=== PATIENT | female | born 1940 | race Caucasian/White ===

== ENCOUNTER 2025-03-25 17:33 | Inpatient (IN) | payer MEDICARE, SELFPAY ==
--- NOTE | ~2025-03-25 | CT_ITS ---
CLINICAL HISTORY: Stroke Protocol CT head without contrast Comparison: None provided Findings: Significant beam hardening artifact from metal in the left orbit. No intra-axial mass, midline shift, hydrocephalus, or acute hemorrhage. There is atrophy. Nonspecific bilateral supratentorial white matter hypodensities most suggestive of chronic small-vessel ischemic changes. Atherosclerotic vascular disease. The visualized paranasal sinuses and mastoid air cells are clear. Metal in the left orbit. There is no acute skull fracture. IMPRESSION: 1. No acute intracranial findings. This document has been electronically signed by: Ros Soliz MD on 03/25/2025 18:13:14
--- NOTE | ~2025-03-25 | CT_ITS ---
CLINICAL HISTORY: aphasia CT angiography head and neck with contrast. 3D Postprocessing. Comparison: None provided Findings: Aortic arch and arch vessels are patent. Atherosclerotic vascular disease. Bilateral common carotid arteries are patent with retropharyngeal course. Mild calcified plaque at bilateral carotid bifurcations with no hemodynamically significant stenosis. Bilateral external carotid arteries are patent. Bilateral vertebral arteries are patent. Bilateral intracranial internal carotid arteries are patent. Atherosclerotic vascular disease of cavernous segments bilaterally with no hemodynamically significant stenosis. Basilar artery enhances normally. Bilateral anterior, middle and posterior cerebral arteries are patent. No intracranial large vessel occlusion. No aneurysm. No abnormal intracranial enhancement. The visualized thyroid gland is unremarkable. No cervical mass or fluid collection. Lung apices clear. No acute fracture. Degenerative changes in cervical spine. IMPRESSION: 1. CT angiography neck demonstrates atherosclerotic vascular disease with no hemodynamically significant stenosis. 2. CT angiography brain demonstrates no intracranial large vessel occlusion. This document has been electronically signed by: Ros Soliz MD on 03/25/2025 18:48:13
--- NOTE | ~2025-03-25 | MR_ITS ---
CLINICAL HISTORY: CVA suspected MR Brain without gadolinium Comparison: CT head and CTA head earlier the same day. Findings: No restricted diffusion. Mild multifocal T2/FLAIR hyperintensities in the white matter, likely secondary to chronic ischemic small vessel disease. No intra-axial mass or hemorrhage. No midline shift. No hydrocephalus. Vascular flow voids are intact. The lenses have been replaced. Minimal mucoperiosteal thickening of the ethmoid sinuses. The mastoid air cells are clear. No focal bone lesion. IMPRESSION: No acute/subacute infarct. This document has been electronically signed by: Peggy Castellon MD on 03/25/2025 21:24:34
--- NOTE | 2025-03-25 17:38 | ECG_ITS ---
Test Reason : STROKE PROTOCOL Blood Pressure : */* mmHG Vent. Rate : 87 BPM Atrial Rate : 87 BPM P-R Int : 148 ms QRS Dur : 102 ms QT Int : 384 ms P-R-T Axes : 77 66 37 degrees QTcB Int : 462 ms Normal sinus rhythm Normal ECG No previous ECGs available Referred By: Edgardo Reid Electronically Signed By: SVETLANA DUONG MD
--- NOTE | 2025-03-25 17:39 | ED.NEUROSD ---
HPI - Neuro Symptoms/Deficit General Chief Complaint: Stroke Stated Complaint: Stroke Alert AMS driving facial drop -Thinners Time Seen by Provider: 03/25/25 17:37 History of Present Illness ED Provider: Edgardo Reid MD HPI Narrative: The patient seen immediately on arrival she was called in his a stroke alert for confusion and aphasia. 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 She is alert oriented x4 smiling comfortable interactive with fluent speech no aphasia she could not give a great timeline but had recalled history of Scott's palsy she felt like it was the left side EMS reported her confused. The patient was last well at 16:00 when she said she got up and went to her car to go to [facility]. She apparently pulled up to [employer] and parked in a ?random ?spot shortly after this staff came out and called EMS because she seemed confused or altered EMS arrived there patient had a facial deficit they noted but the patient reported this to be chronic she was however confused with what they describe as perhaps expressive aphasic speech for forgetfulness repeating statements. Purportedly this began resolving in route. Related Data Home Medications ?Medication ?Instructions ?Recorded ?Confirmed albuterol sulfate 90 mcg/actuation 2 puff inhalation Q4H PRN wheezing 03/25/25 03/25/25 aerosol inhaler atenolol 50 mg tablet 50 mg PO DAILY 03/25/25 03/25/25 calcium 600 mg (as carbonate)-vit 1 tab PO BID 03/25/25 03/25/25 D3 20 mcg (800 unit) chewable tablet (Caltrate plus D) cetirizine 10 mg tablet 10 mg PO DAILY PRN Allergy Symptoms 03/25/25 03/25/25 cholecalciferol (vitamin D3) 50 50 mcg PO DAILY 03/25/25 03/25/25 mcg (2,000 unit) tablet (Vitamin D3) fluticasone propionate 50 2 spray intranasal DAILY 03/25/25 03/25/25 mcg/actuation nasal spray,suspension latanoprost 0.005 % eye drops 1 drp ophthalmic (eye) BEDTIME 03/25/25 03/25/25 levothyroxine 75 mcg tablet 75 mcg PO DAILY@0600 03/25/25 03/25/25 Allergies Allergy/AdvReac Type Severity Reaction Status Date / Time No Known Allergies Allergy Verified 03/25/25 17:44 [facility] Past Medical History Medical History Scott's palsy Glaucoma Macular degeneration Asthma Social History Social History Alcohol intake: never Patient Tobacco Use Status: Never used Tobacco Smoked in Last 30 Days: No Use of substances other than those prescribed or required for medical reasons: No Advance Directives: No Advance Directives Information Provided: No Patient : No service: No Physical Exam Exam: Exam: GENERAL: Well appearing. No apparent distress. Alert. HEAD/NECK: Normal to inspection. Neck supple. No cervical lymphadenopathy. EYES: Normal to inspection. Sclera non-icteric. ENMT: External nose normal. RESPIRATORY: Respiratory effort normal. Lungs clear to auscultation bilaterally. CARDIOVASCULAR: Regular rate. Normal rhythm. No murmur. No rubs. GI: Soft, non-tender, non-distended. No rebound or guarding. No masses palpable. No hepatosplenomegaly. SKIN: No jaundice. NEUROLOGICAL: Alert. PSYCHIATRIC: Alert. Appearance appropriate for situation. Attitude cooperative. OTHER: Comprehensive Neuro exam: Patient has an asymmetric face with perhaps week facial periorbital musculature but strong symmetric forehead deviation upward. pupils symmetric and reactive to light, intact sensation to the face throughout, intact strong face deviation and shoulder shrug. No limb ataxia. Tongue protrudes midline. Oriented x4 Sensation intact to light touch throughout 5 out of 5 strength in bilateral upper extremities, 5 and 5 strength in lower extremities Vital Signs: Vital Signs: Last Vital Signs Temp 97.6 F 03/26/25 06:13 Pulse 100 03/26/25 13:59 Resp 22 H 03/26/25 09:06 BP 133/84 03/26/25 13:59 Pulse Ox 90 L 03/26/25 09:06 O2 Del Method Room Air 03/26/25 09:06 BMI result Body Mass Index 31.0 Medications Administered Generic Name Dose Route Start Last Admin Trade Name Freq PRN Reason Stop Dose Admin Aspirin 81 mg 03/26/25 09:00 03/26/25 09:46 Aspirin 81 Mg Tab.Chew PO 81 mg DAILY BERNICE Administration Atenolol 50 mg 03/26/25 13:15 03/26/25 13:59 Atenolol 50 Mg Tablet PO 50 mg DAILY BERNICE Administration Protocol Levothyroxine Sodium 75 mcg 03/26/25 13:15 03/26/25 13:59 Levothyroxine Sodium 75 Mcg Tablet PO 75 mcg DAILY@0600 BERNICE Administration Senna 17.2 mg 03/25/25 21:00 03/25/25 21:20 Sennosides 8.6 Mg Tablet PO 17.2 mg BEDTIME BERNICE Administration Sodium Chloride 3 ml 03/26/25 00:00 03/26/25 09:46 0.9 % Sodium Chloride Flush 3 Ml Syringe IVFLUSH 3 ml QSHIFT BERNICE Administration Discontinued Medications Generic Name Dose Route Start Last Admin Trade Name Holly PRN Reason Stop Dose Admin Aspirin 325 mg 03/25/25 19:14 03/25/25 21:20 Aspirin 325 Mg Tablet PO 03/25/25 19:15 325 mg ONCE ONE Administration Hydralazine HCl 5 mg 03/25/25 20:10 03/25/25 21:20 Hydralazine Hcl 20 Mg/Ml Vial IVPUSH 03/25/25 20:11 5 mg ONCE ONE Administration Protocol Iohexol 70 ml 03/25/25 17:57 03/25/25 17:57 Iohexol 350 Mg/Ml 100 Ml Infus..Btl IV 03/25/25 17:58 70 ml ONCE ONE Administration Medical Decision Making Medical Decision Making MDM Narrative: Medical Decision Makin-year-old female transient confusion possibly expressive aphasia described witnessed by EMS last known well for p.m. arrival shortly after 17:30. Given score of 1 for NIH stroke scale on arrival due to face though this is chronic. No deficits no aphasia no dysarthria on arrival. No reported vision symptoms. Euglycemic, no coagulopathy, sinus rhythm. CT CTA performed without acute pathology to explain the patient's symptoms could be TIA less likely complex migraine does not fit timing for transient global amnesia Preliminary Favored Differential Diagnosis: See above among additional considered etiologies Testing Interpreted Independently: Sinus rhythm without acute ischemic changes normal intervals Radiology or Lab testing Results Reviewed: ?See below for details Consults: ?See below for details Independent Historians/External Chart Reviews: ?See below for details Social Determinants of Health Impacting MDM/Planning: ?See below for details Lab Data 03/26/25 03:45 03/26/25 03:45 Labs: Lab Results 03/25/25 03/25/25 03/25/25 Range/Units 17:37 17:41 17:48 WBC 7.6 (4.8-10.8) X10*3/uL RBC 5.04 (4.20-5.50) X10*6/uL Hgb 15.8 (12.0-16.0) g/dl Hct 48.6 H (37.0-47.0) % MCV 96.4 (80.0-98.0) fL MCH 31.3 (27.0-33.0) pg MCHC 32.5 (31.0-35.0) g/dl RDW 13.3 (11.0-16.0) % Plt Count 201 (160-400) X10*3/uL MPV 10.0 (9.4-12.3) fL Immature Gran % (Auto) 0.7 H (0.0-0.4) % Neut % (Auto) 55.3 (45-73) % Lymph % (Auto) 28.0 (20-40) % [place] % (Auto) 8.0 (2-11) % Eos % (Auto) 7.1 H (0-4) % Baso % (Auto) 0.9 (0-2) % Lymph # (Auto) 2.1 (1.2-4.9) X10*3/uL [place] # (Auto) 0.6 (0.1-1.2) X10*3/uL Eos # (Auto) 0.5 H (0.0-0.4) X10*3/uL Baso # (Auto) 0.1 (0.0-0.2) X10*3/uL Abs Immat Gran (auto) 0.05 H (0.00-0.03) X10*3/uL Absolute Neuts (auto) 4.2 (2.0-8.3) x10*3/uL Absolute Nucleated RBC 0.000 (0.0-0.012) X10*3/uL Nucleated RBC % (auto) 0.0 (0.0-0.2) /100WBC PT 11.9 (11.2-13.5) SEC Whole Blood PT 12.1 (11.1-13.5) sec INR 1.0 (0.9-1.1) Whole Blood INR 1.0 (0.9-1.1) APTT 28.9 (26.7-34.1) SEC Sodium 141 (135-145) mmol/L Potassium 4.3 (3.3-5.1) mmol/L Chloride 107 (96-108) mmol/L Carbon Dioxide 24 (22-29) mmol/L Anion Gap 14 (12-20) BUN 27 H (9-16) mg/dL Creatinine 0.98 (0.5-1.4) mg/dL Estim Creat Clear Calc 50.0 Estimated GFR 54 POC Glucose 98 (60-115) mg/dL Random Glucose 94 (60-115) mg/dL Calcium 9.8 (8.4-10.2) mg/dL Magnesium 2.1 (1.6-2.6) mg/dL Troponin I High Sens 56.0 H* (<3.5-17.0) ng/L NT-Pro-B Natriuret Pep (<300) pg/mL Triglycerides 86 (<150) mg/dL Cholesterol 163 (<200) mg/dL LDL Cholesterol, Calc 98 (<100) mg/dL HDL Cholesterol 48 (>40) mg/dL TSH 3.29 (0.32-4.0) uIU/mL Ethyl Alcohol < 10 mg/dL 03/25/25 Range/Units 19:12 WBC (4.8-10.8) X10*3/uL RBC (4.20-5.50) X10*6/uL Hgb (12.0-16.0) g/dl Hct (37.0-47.0) % MCV (80.0-98.0) fL MCH (27.0-33.0) pg MCHC (31.0-35.0) g/dl RDW (11.0-16.0) % Plt Count (160-400) X10*3/uL MPV (9.4-12.3) fL Immature Gran % (Auto) (0.0-0.4) % Neut % (Auto) (45-73) % Lymph % (Auto) (20-40) % [place] % (Auto) (2-11) % Eos % (Auto) (0-4) % Baso % (Auto) (0-2) % Lymph # (Auto) (1.2-4.9) X10*3/uL Hubbard # (Auto) (0.1-1.2) X10*3/uL Eos # (Auto) (0.0-0.4) X10*3/uL Baso # (Auto) (0.0-0.2) X10*3/uL Abs Immat Gran (auto) (0.00-0.03) X10*3/uL Absolute Neuts (auto) (2.0-8.3) x10*3/uL Absolute Nucleated RBC (0.0-0.012) X10*3/uL Nucleated RBC % (auto) (0.0-0.2) /100WBC PT (11.2-13.5) SEC Whole Blood PT (11.1-13.5) sec INR (0.9-1.1) Whole Blood INR (0.9-1.1) APTT (26.7-34.1) SEC Sodium (135-145) mmol/L Potassium (3.3-5.1) mmol/L Chloride (96-108) mmol/L Carbon Dioxide (22-29) mmol/L Anion Gap (12-20) BUN (9-16) mg/dL Creatinine (0.5-1.4) mg/dL Estim Creat Clear Calc Estimated GFR POC Glucose (60-115) mg/dL Random Glucose (60-115) mg/dL Calcium (8.4-10.2) mg/dL Magnesium (1.6-2.6) mg/dL Troponin I High Sens 56.9 H* (<3.5-17.0) ng/L NT-Pro-B Natriuret Pep 96.3 (<300) pg/mL Triglycerides (<150) mg/dL Cholesterol (<200) mg/dL LDL Cholesterol, Calc (<100) mg/dL HDL Cholesterol (>40) mg/dL TSH (0.32-4.0) uIU/mL Ethyl Alcohol mg/dL Discharge Plan Discharge Clinical Impression: Delirium Patient Disposition: Admitted As Inpatient Interventions: Admission Worksheet (ED) Last Done: 03/26/25 09:01
[2025-03-25 17:40] VITALS: BP 187/124; BP 207/110; PULSE 98; RESP 14; O2SAT 94; O2SAT 98; BMI 31.0
[2025-03-25 17:46] LABS: Glucose, Whole Blood 98 mg/dL (60-115)
[2025-03-25 17:46] LABS: Prothrombin Time Whole Bld POC 12.1 sec (11.1-13.5); ~PT, ~INR - Anti Coag Clinic 1.0 (0.9-1.1)
[2025-03-25 17:56] LABS: MANUAL DIFF FLAG NO
[2025-03-25] MEDS: iohexoL 350 MG/ML 100 ML INFUS..BTL 70 ML IV (17:57)
[2025-03-25 18:01] VITALS: BP 192/99; PULSE 87; RESP 8; TEMP 36.8; O2SAT 95
[2025-03-25 18:11] LABS: INTERNATIONAL NORM RATIO 1.0 (0.9-1.1); Prothrombin Time 11.9 SEC (11.2-13.5)
[2025-03-25 18:14] LABS: Partial Thromboplastin Time 28.9 SEC (26.7-34.1)
[2025-03-25 18:20] LABS: Anion Gap 14 (12-20); Blood Urea Nitrogen 27 mg/dL (9-16); Calcium 9.8 mg/dL (8.4-10.2); Carbon Dioxide 24 mmol/L (22-29); Chloride 107 mmol/L (96-108); Cholesterol 163 mg/dL (<200); Creatinine Clr Calc Pharmacy 50.0; Estimated Glomerular Filt Rate 54; HDL Cholesterol 48 mg/dL (>40); Potassium 4.3 mmol/L (3.3-5.1); Sodium 141 mmol/L (135-145); Triglycerides 86 mg/dL (<150)
[2025-03-25 18:21] LABS: Hematocrit 48.6 % (37.0-47.0); Hemoglobin 15.8 g/dl (12.0-16.0); Imm Gran Abs Auto 0.05 X10*3/uL (0.00-0.03); Imm Gran Pct Auto 0.7 % (0.0-0.4); Lymphocytes Absolute Auto 2.1 X10*3/uL (1.2-4.9); Mean Corpuscular HGB Conc 32.5 g/dl (31.0-35.0); Mean Corpuscular Hemoglobin 31.3 pg (27.0-33.0); Mean Corpuscular Volume 96.4 fL (80.0-98.0); NRBC Abs Auto 0.000 X10*3/uL (0.0-0.012); NRBC Pct Auto 0.0 /100WBC (0.0-0.2); Platelet Count 201 X10*3/uL (160-400); Red Blood Count 5.04 X10*6/uL (4.20-5.50); White Blood Count 7.6 X10*3/uL (4.8-10.8)
[2025-03-25 18:22] LABS: Stroke Lab Use COMPLETE
[2025-03-25 18:29] LABS: Troponin-I High Sensitivity 56.0 ng/L (<3.5-17.0)
--- NOTE | 2025-03-25 19:30 | PC.NURSE ---
This tech writer assumed care of this Pt at 1900. Pt A&Ox2, forgetful. Denies any pain. Pt taken for MRI imagine.
[2025-03-25 19:39] LABS: Troponin-I High Sensitivity 56.9 ng/L (<3.5-17.0)
--- NOTE | 2025-03-25 19:46 | PM.IMHP ---
History of Present Illness Date of Service: 03/25/25 Attending physician on admission: Antonio Garg Chief Complaint: loss of memory, possible CVA Patient is a 84-year-old female currently experiencing poor memory both short-term and long-term but 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 Patient initially had aphasia per EMS and short-term memory loss. Patient's left side of the face was drooped with paralysis. Patient stated to the ED provider that she has baseline Scott's palsy which could explain this finding but this functional tester typewriters used phone to allow patient to see her face currently and she states that those changes on the left side are new. Patient had no lower extremity or upper extremity weakness, no drift. Patient denies any headache, nausea, vomiting, chest pain or shortness of breath. Patient only follows with her PCP and has no other specialists including jack setter. Patient also states that she has no family in the local area and has no children. Patient is familiar with her neighbor Hillary, but patient does not carry a cell phone so she has no phone numbers available. Patient states her sister Lotus wilson and lives in [place] and requested that this functional tester typewriters attempt to reach out to her. Patient's sister is listed online the phone numbers listed are not working. Patient denies history of stroke or seizure. Patient denies history of smoking, alcohol use, marijuana use or illicit drug use. Patient denies history of UTI more diabetes. LKW was approximately 4PM after pt awakened from a nap. Patient denies unexplained weight loss or gain. Patient is left-hand dominant. Head CT was negative for any acute findings. Head and neck CTA noted atherosclerotic vascular disease with no hemodynamically significant stenosis. CT Angiography of the brain demonstrates no intracranial large vessel occlusion. Patient currently has no leukocytosis or anemia. Electrolytes and renal function are stable. Blood glucose 94. Troponins trending 56 and then 56.9. Triglycerides 86, cholesterol 163, LDL 98 and HDL 48. Patient is being admitted for TIA rule out CVA. Review of Systems Review of Systems: Patient currently denies any chest pain, shortness of breath at rest or with exertion, nausea, vomiting, abdominal pain, constipation or diarrhea. Patient did have a fall this past Sunday where she landed on her back but could not describe whether was mechanical fall or syncopal episode. Patient was on the floor for 5-10 minutes was able to get up on her own. Patient does not carry a cell phone emergency device at her home and only has a landline. Patient has no family to speak of and a neighbor named clear but no phone number available. Patient has chronic glaucoma macular degeneration states her vision is relatively poor but patient has been driving and living independently at home. [facility] Medical History (Updated 03/25/25 @ 20:03 by DANIELA Carlisle) Scott's palsy Glaucoma Macular degeneration Asthma Cognitive capacity: Alert and orientated x3 with episodes of short-term memory loss Functional capacity: independent ambulation (Prior to today's episode) Patient : No Pertinent family history: Mother in her 70s from possible [place] Father in his 50s from [place] Social History (Updated 03/25/25 @ 20:00 by DANIELA Carlisle) Alcohol intake: never Patient Tobacco Use Status: Never used Tobacco Smoked in Last 30 Days: No Use of substances other than those prescribed or required for medical reasons: No Advance Directives: No Advance Directives Information Provided: No Patient : No Has Patient Experienced Ebola Symptoms: No Meds Allergies Allergy/AdvReac Type Severity Reaction Status Date / Time No Known Allergies Allergy Verified 03/25/25 17:44 Active Medications: Current Medications Acetaminophen (Acetaminophen 325 Mg Tablet) 650 mg PO Q6H PRN PRN Reason: Pain, Mild 1-3,fever,headache Albuterol/Ipratropium (Albuterol/Iprat 2.5/0.5mg 3 Ml Ampul.Neb) 3 ml INHALE Q4H PRN PRN Reason: Shortness of Breath/Wheezing Calcium Carbonate (Calcium Carbonate 750 Mg Tab.Chew) 750 mg PO Q4H PRN PRN Reason: Heartburn Magnesium Hydroxide (Milk Of Magnesia 30 Ml Oral.Susp) 30 ml PO DAILY PRN PRN Reason: Constipation Polyethylene Glycol (Polyethylene Glycol 3350 17 Gm Powd.Pack) 17 gm PO DAILY PRN PRN Reason: Constipation Senna (Sennosides 8.6 Mg Tablet) 17.2 mg PO BEDTIME BERNICE Sodium Chloride (0.9 % Sodium Chloride Flush 3 Ml Syringe) 3 ml IVFLUSH QSHIFT [facility] Home Medications ?Medication ?Instructions ?Recorded ?Confirmed ?Last Taken ?Type albuterol sulfate 90 mcg/actuation 2 puff inhalation Q4H PRN wheezing 03/25/25 03/25/25 Unknown History aerosol inhaler atenolol 50 mg tablet 50 mg PO DAILY 03/25/25 03/25/25 03/23/25 History calcium 600 mg (as carbonate)-vit 1 tab PO BID 03/25/25 03/25/25 03/23/25 History D3 20 mcg (800 unit) chewable tablet (Caltrate plus D) cetirizine 10 mg tablet 10 mg PO DAILY PRN Allergy Symptoms 03/25/25 03/25/25 Unknown History cholecalciferol (vitamin D3) 50 50 mcg PO DAILY 03/25/25 03/25/25 03/23/25 History mcg (2,000 unit) tablet (Vitamin D3) fluticasone propionate 50 2 spray intranasal DAILY 03/25/25 03/25/25 03/23/25 History mcg/actuation nasal spray,suspension latanoprost 0.005 % eye drops 1 drp ophthalmic (eye) BEDTIME 03/25/25 03/25/25 03/23/25 History levothyroxine 75 mcg tablet 75 mcg PO DAILY@0600 03/25/25 03/25/25 03/23/25 History Physical Exam Vital Signs and Narrative: Vital Signs: Last Vital Signs Temp 98.3 F 03/25/25 18: Pulse 87 03/25/25 18:01 Resp 8 L 03/25/25 18:01 BP 192/99 H 03/25/25 18:01 Pulse Ox 95 03/25/25 18:01 O2 Del Method Room Air 03/25/25 18:01 BMI result Body Mass Index 31.0 Alert and orientated X3, frustrated with memory loss, this is just stupid , patient overwhelmed with not being able to remember earlier events from today Neuro: Left facial droop with paralysis, left eye proptosis EYES: PERRLA, EOM intact, sclerae nonicteric, conjunctiva pink ENT: Hearing loss noted, no obvious issues with swallowing, uvula midline, lips moist, nares patent no epistaxis Cardiac: S1 S2 RRR, no murmur, no JVD, no edema in Lower ext Pulmonary: lungs clear to auscultation B Abdominal: BS active in all 4 quadrants, no guarding, tenderness, rebounding MSK: strength 5/5 upper and lower extremities, equal, no drift : no CVA tenderness no bladder distension Extremities: no edema in lower extremities, PT and DP pulses palpable +2 Psych: mood mildly anxious, judgement and insight good Skin: No new rashes or lesions Results Labs 03/26/25 03:45 03/26/25 03:45 Labs: Laboratory Results - last 24 hr 03/25/25 03/25/25 03/25/25 17:37 17:41 17:48 MCV 96.4 MCH 31.3 MCHC 32.5 RDW 13.3 Plt Count 201 MPV 10.0 Immature Gran % (Auto) 0.7 H Neut % (Auto) 55.3 Lymph % (Auto) 28.0 [place] % (Auto) 8.0 Eos % (Auto) 7.1 H Baso % (Auto) 0.9 Lymph # (Auto) 2.1 [place] # (Auto) 0.6 Eos # (Auto) 0.5 H Baso # (Auto) 0.1 Abs Immat Gran (auto) 0.05 H Absolute Neuts (auto) 4.2 Absolute Nucleated RBC 0.000 Nucleated RBC % (auto) 0.0 PT 11.9 Whole Blood PT 12.1 INR 1.0 Whole Blood INR 1.0 APTT 28.9 Anion Gap 14 Estim Creat Clear Calc 50.0 Estimated GFR 54 POC Glucose 98 Random Glucose 94 Calcium 9.8 Troponin I High Sens 56.0 H* Triglycerides 86 Cholesterol 163 LDL Cholesterol, Calc 98 HDL Cholesterol 48 Ethyl Alcohol < 10 03/25/25 19:12 MCV MCH MCHC RDW Plt Count MPV Immature Gran % (Auto) Neut % (Auto) Lymph % (Auto) [place] % (Auto) Eos % (Auto) Baso % (Auto) Lymph # (Auto) [place] # (Auto) Eos # (Auto) Baso # (Auto) Abs Immat Gran (auto) Absolute Neuts (auto) Absolute Nucleated RBC Nucleated RBC % (auto) PT Whole Blood PT INR Whole Blood INR APTT Anion Gap Estim Creat Clear Calc Estimated GFR POC Glucose Random Glucose Calcium Troponin I High Sens 56.9 H* Triglycerides Cholesterol LDL Cholesterol, Calc HDL Cholesterol Ethyl Alcohol ECG Attestation: I personally reviewed and interpreted this ECG as follows: (Normal sinus rhythm QTC 462 no ischemic changes) Prior ECG tracings: available for review Imaging Radiologist's Impressions: Head CT Negative for acute CTA of the head and Negative for any occlusive findings Assessment and Plan (1) TIA (transient ischemic attack): Status: Acute Plan Patient is a 84-year-old female currently experiencing poor memory both short-term and long-term but 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 Patient being admitted for TIA rule out CVA. * Patient has no family in the local area. Attempted to reach patient's sister Lotus wilson and in [place] via information found online but both numbers were not working. Patient does not have a cell phone and has no numbers for her neighbor as well named clear. * patient states she does have a history of Scott's palsy but when she saw her face this evening on admission she states that the left-sided droopiness and paralysis is new. * short-term memory poor, causing increased frustration for patient at this time. Patient is very concerned that she will not be able to return home and live independently like she was. TIA rule out CVA CT of the head and CTA of the head and neck negative for acute findings MRI of the brain negative for acute/subacute infarct Echocardiogram pending Neurology consulted Will ask OT to complete MOCA: ? dementia CM/SW consult placed, pt lives alone with no family or support Aspirin 325 x 1, we will continue aspirin 81 mg daily Lipid panel completed, triglycerides 86, cholesterol 163, LDL 98 and HDL 48 AIC pending Bedside swallow requested, pt passes and diet ordered PT eval, ST if needed Elevated troponin 56, than 56.9 Telemetry Echo in the a.m. Cardiology consulted EKG negative for any ischemic changes BNP 96.3 Hypertension Permissive hypertension allowed avoid hypotension Currently blood pressure 192/99, was 201/110 after hydralazine, systolic 171 We will continue atenolol as EKG negative for any arrhythmia or ischemic finding History of Scott's palsy Unclear if left-sided facial changes are chronic versus acute Patient saw a picture of herself this evening and states those findings are new Asthma Duo nebs p.r.n. Patient currently asymptomatic No history of smoking Hypothyroidism Continue levothyroxine TSH 3.29 Macular degeneration/glaucoma Continue eyedrops once med rec completed DVT prophylaxis: Lovenox Med rec completed Full code status Patient will require at least 2 midnights for evaluation of TIA and rule out CVA with expert consultation with Neurology, MRI, echocardiogram. Patient will need case management services as she currently lives alone. Quality Stroke Does the patient have a stroke diagnosis?: No Reason for No Anti-thrombotic by Day Two: N/A - Med Ordered VTE Prior VTE?: No VTE Risk Level:: Medical - moderate - high VTE Device Contraindication: N/A - Device Ordered VTE Drug Contraindication: N/A - Med Ordered
[2025-03-25 20:24] LABS: Magnesium 2.1 mg/dL (1.6-2.6)
[2025-03-25 20:31] LABS: NT Pro B Type Natriuretic Pept 96.3 pg/mL (<300)
[2025-03-25 21:16] VITALS: BP 171/109; PULSE 89; RESP 18; TEMP 36.8; O2SAT 93
--- NOTE | 2025-03-25 22:43 | PHA.MEDREC ---
Pharmacy Consult ? Medication Reconciliation Pharmacy has completed the medication reconciliation. Spoke to patient to confirm medication list. Per patient, she uses latanoprost 1 drop in ou qhs, she does not use dorzolamide-timolol. Last dose of medications was about 2 days ago.
[2025-03-26] VITALS (9 sets, daily range): BP systolic 133–198; BP diastolic 84–105; PULSE 67–103; RESP 17–22; TEMP 36.4–37.6; O2SAT 90–97; BMI 30.9; BMI 31.4
--- OUTSIDE RECORDS SUMMARY | 2025-03-26 00:58 | XMS_ITS | Encounter Summary ---
Author Organization [facility] Address [address] [place] [address] Care Team Providers Care Movie Editor Name Role Phone Alona Yanez MD Primary Care Provider [phone] Encounter Details Date Type Department Care Team ([facility] st Contact Info) Description 03/24/2025 Telephone Adult Medicine [address] [phone] Inge Dye MA Social History Tobacco Use Types Packs/Day Years Used Date Smoking Tobacco: Never Smokeless Tobacco: Never Alcohol Use Standard Drinks/Week Comments No 0 (1 standard drink = 0.6 oz pur e alcohol) Housing Instability Answer Date Recorde d Are you worried that in the next 2 months you may not have stable housing? No 11/26/2024 Food Access & Nutrition Answer Date Rec orded Do you have access to a vari ety of food including fruits and vegetables? Yes 11/26/2024 Access to Healthcare Answer Date Record ed Within the last 3 months, ho w many times did you visit the emergency department for your medical care? 1 11/26/2024 Health Literacy Answer Date Recorded How often do you need to hav e someone help you when you read instructions, pamphlets, or other written material from your doctor or pharmacy? Always 11/26/2024 Caregiver: How often do you need to have someone help you when you read instructions, pamphlets, or other written material from your doctor or pharmacy? Not on file 11/26/2024 Financial Risk Answer Date Recorded How hard is it for you to pa y for the very basics like food, housing, medical care, and air conditioning / heating? Not very hard 11/26/2024 Transportation Answer Date Recorded Has the lack of transportati on kept you from meetings, work, or from getting things needed for daily living? No Has the lack of transportati on kept you from medical appointments or from getting medications? No 11/26/2024 Social Isolation Answer Date Recorded How often do you feel lonely or isolated from th ose around you? Never 11/26/2024 Food Risk Answer Date Recorded Within the past 12 months we worried whether our food would run out before we got money to buy more. Never true 11/26/2024 Within the past 12 months th e food we bought just didn't last and we didn't have money to get more. Often true 11/26/2024 Dependent Care Answer Date Recorded Do you need help finding or paying for care for your loved ones. For example, child and adolescent therapist or elderly care for an older adult? No 11/26/2024 Education Answer Date Recorded Do you think completing more education or training, like finishing a GED, going to college, or learning a trade, would be helpful for you? No 11/26/2024 Employment and Income Answer Date Recor ded During the last four weeks, have you been actively looking for work? No 11/26/2024 Living Situation Answer Date Recorded What is your living situation? Unrecognized valu e 11/26/2024 Interpersonal Safety Answer Date Record ed Physical Abuse Unrecognized value 11/26/2024 Verbal Abuse Unrecognized value 11/26/2024 Comments Unknown Sex and Gender Information Value Date Recorded Sex Assigned at Not on file Legal Sex Female 4:13 PM EST Gender Identity Not on file Sexual Orientation Not on file documented as of this encounter Progress Notes * Tanvi Lopez RN - 03/24/2025 3:11 PM EST Called and spoke to pt. She states she had a fall on 03/21/25 at 9:00 am. She lost her balance and fell backwards. She states her back hit the ground on her right side. She denies hitting her head. No loss of consciousness. After a couple of minutes she was able to get up on her own. She denies pain apart from her normal aches. She is using a hot water bottle on her back. She is declining an appointment in the office at this time. She states she is up and walking without difficulty. She was instructed to call the office if she develops any new or worsening symptoms or if she decides to follow up with her PCP. She is in agreement with this plan. documented in this encounter Plan of Treatment Not on file documented as of this encounter Visit Diagnoses Not on filedocumented in this encounter Additional Health Concerns Assessment Noted Time PHQ-9 Depression Total Score: 2 11/27/19 25 11:09 AM EDT A fall risk assessment has been complete d for the patient 11/26/2024 11:07 AM EDT documented as of this encounter Care Teams Movie Editor Relationship Specialty Start Date End Date Alona Yanez MD [address] [place] [address] PCP - General Internal Medicine 05/28/15 documented as of this encounter
--- OUTSIDE RECORDS SUMMARY | 2025-03-26 00:58 | XMS_ITS | Clinical Summary ---
Author Organization [facility] [address] [place] [address] [place] [phone] Phone Care Team Providers Care Manufacturing Technology Professor Name Role Phone Alona Yanez MD Primary Care Provider [phone] Allergies Active Allergy Reactions Criticality Noted Date Comments Codeine 06/22/2015 Medications levothyroxine (SYNTHROID, LEVOTHROID) 75 mcg tablet TAKE 1 TABLET BY MOUTH DAILY 90 tablet 3 03/26/20 24 Active Eliquis 5 mg tablet TAKE 1 TABLET BY MOUTH TWICE DAILY 180 tablet 3 03/26/20 24 Active cholecalcifero l (VITAMIN D-3) 50 mcg (2,000 unit) capsule Take 1 Capsule by mouth daily. 01/06/20 23 Active fluticasone propionate (FLONASE) 50 mcg/actuation nasal spray SHAKE LIQUID AND USE 2 SPRAYS IN EACH NOSTRIL EVERY DAY 06/09/19 23 Active latanoprost (XALATAN) 0.005 % ophthalmic solution 1 Drop at bedtime. Active vit C/E/Zn/coppr/l utein/zeaxan (PRESERVISION AREDS-2 ORAL) Take by mouth. A ctive albuterol HFA (PROAIR HFA ; PROVENTIL HFA ; VENTOLIN HFA) 90 mcg/actuation inhaler Inhale 2 puffs by mouth every 4 (four) hours if needed for wheezing. 6.7 g 1 11/29/19 25 Active budesonide-for moteroL (SYMBICORT) 80-4.5 mcg/actuation inhaler Inhale 2 puffs by mouth 2 (two) times a day. Rinse mouth with water after use to reduce aftertaste and incidence of candidiasis. Do not swallow. 1 each 11/29/19 25 Active atenoloL (TENORMIN) 50 mg tablet TAKE 1 TABLET(50 MG) BY MOUTH 1 TIME EACH DAY 90 tablet 03/25/20 25 Active atenoloL (TENORMIN) 50 mg tablet TAKE 1 TABLET(50 MG) BY MOUTH 1 TIME EACH DAY 90 tablet 12/26/19 25 025 Discontinued Active Problems Problem Noted Date Diagnosed Date Asthma exacerbation 11/26/2024 Pulmonary emboli 05/01/2023 Overview (04/04/2024): 05/09 bilateral with right heart strain DNR (do not resuscitate) 05/01/2023 Overview (05/23/2024): MOLST form completed 05/01/2023 Cardiopulmonary resuscitation - do not resuscitate Ventilation for a patient in respiratory distress - do not intubate or ventilate Transfer to hospital - transfer to hospital Dialysis - no dialysis Artificial nutrition - no artificial nutrition Artificial hydration - use artificial hydration 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 Glaucoma 01/18/2021 PLMD (periodic limb movement disorder) 9 Obesity (BMI 30.0-34.9) 06/04/2018 Asthma 07/24/2015 Assessment & Plan (11/26/2024 11:18 AM EDT): Cervical high risk HPV (human papillomavirus) te st positive 07/24/2015 Overview (04/04/2024): On pap 01/25 and 08/26: Normal cytology - will not need additional testing STAR (obstructive sleep apnea) 07/24/2015 Overview (04/04/2024): [facility] Home Sleep Apnea Test: Date 10/11/2018; Wt 201#; BMI 30; PHUONG 29, AI 29; HI 1; Unclassified apneas 0; Obstructive apneas 36; Central apneas 12; Mixed apneas 0; hypopneas 1; average oxygen saturation 92% (lowest 81% without saturations <88% for 5% or more of study) [facility] Polysomnogram treatment study. Date 11/02/2018. Wt 195#; BMI 29; SE 55 % SM 55 %; spent 13 % of the study in REM. On CPAP @ 8; RDI 18.5 (AHI 6.9), Central apneas 20; Obstructive apneas 0; Mixed apneas 0; hypopneas 1; RERAs 35; and, average oxygen saturation was 96%. For the entire study, PLMs ~58. - Obstructive Sleep Apnea - moderate; mostly obstructive and central apneas; without sleep related hypoventilation by [address] Vanda Lugo Hypertriglyceridemia 07/24/2015 Osteopenia 07/24/2015 Overview (04/04/2024): 06/2017: T-score spine (-0.8); hip (-1.8); FRAX 12% 07/2020: T-score spine (-1.1); hip (-1.7); FRAX 13% 10/2022: T-score spine (-0.7); hip ( -2.1); FRAX ? Vitamin D deficiency 07/24/2015 Essential hypertension 06/22/2015 Assessment & Plan (11/26/2024 11:18 AM EDT): Hypothyroidism 06/22/2015 Assessment & Plan (11/26/2024 11:18 AM EDT): Macular degeneration 06/22/2015 Encounters Date Type Department Care Team Description 03/24/2025 Telephone Adult Medicine [address] [phone] Inge Dye MA 01/30/2025 Telephone Adult Medicine [address] [phone] Alona Yanez MD from Last 3 Months Immunizations Immunization Administration Dates Next Due Influenza trivalent, 0.5mL ( Fluad) 65yo and older 12/28/2022,12/28/2021,12/29/2020,12/28,01/06/2019,12/31/2017,01/01/2017 ,01/03/2016,02/07/2012,01/12/2011,12/15,02/09/2009,01/16/2008, 7 Influenza trivalent, 0.5mL ( Fluzone High-dose) 65yo and older 03/05/2024 Influenza trivalent, 0.5mL, preservative free (Fluarix; FluLaval; Fluzone) ages 6mo and older (Afluria) 3 years and older 12/29/2019,12/29/2009,02/09/2009,01/15,01/16/2007 Influenza trivalent, with pr eservative (Fluzone; Afluria) 6mo and older 01/01/2017,01/03/2016,02/07/2012,01/12 Pneumococcal conjugate 13 va lent (Prevnar 13, PCV13) 2mo and older 06/11/2017 Pneumococcal polysaccharide 23 valent (Pneumovax 23) 2yo and older 09/30/2018,03/03/2008 Td Tetanus diptheria (Tdvax) 7yo and older 06/11/2017 Tdap Tetanus diptheria acell ular pertussis (Boostrix; Adacel) 7yo and older 01/03/2012 Zoster Live 04/15/2009 Zoster recombinant (Shingrix ) 19yo and older 05/12/2021,03/12/2021 Surgical History Surgery Date Site/Laterality Comments BREAST LUMPECTOMY 04/16/2002 Left Breast cancer COLONOSCOPY 03/11/2012 repeat 10 years Medical History Medical History Date Comments Macular degeneration 06/22/2015 Hypothyroidism 06/22/2015 Essential hypertension 06/22/2015 History of breast cancer 06/22/2015 : Left lumpectomy and radiation STAR (obstructive sleep apnea) 07/24/2015 DX :STAR (obstructive sleep apnea) Osteopenia 07/24/2015 Vitamin D deficiency 07/24/2015 Asthma 07/24/2015 Hypertriglyceridemia 07/24/2015 HPV test positive 07/24/2015 On pap 01/25; Normal pap 03/2015 with HPV high risk Glaucoma 01/18/2021 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 For example, children counselor or elderly care for an older adult? [...] on file Sexual Orientation Not on file Last Filed Vital Signs Vital Sign Reading Time Taken Comments Blood Pressure 173/92 11/28/2024 7:54 AM EDT Pulse 80 11/28/2024 9:10 AM EDT Temperature 36.2 C (97.1 F) 11/28/2024 7:54 AM EDT Respiratory Rate 16 11/28/2024 9:10 AM EDT Oxygen Saturation 96% 11/28/2024 10: 22 AM EDT Inhaled Oxygen Concentration - - Weight 91.6 kg (201 lb 15.1 oz) 11/27/2024 8:55 AM EDT Height 168.9 cm (5' 6.5 ) 11/27/2024 8:55 AM EDT Body Mass Index 32.11 11/27/2024 8:55 AM EDT Plan of Treatment Health Maintenance Due Date Last Done Comments RSV Immunization Adult Patients (1 - 1-dose 75+ series) 2016 COVID-19 Vaccine (3 - Moderna risk series) 09/01/2020 08/04/2020, 07/07/2020 Osteoporosis Screening (Bone Density Screening) 11/02/2024 11/02/2022, 07/21/2020, 06/21/2017, Additional history exists Influenza Vaccine (#1) 2024 , 12/28/2022, 12/28/2021, Additional history exists Medicare Annual Wellness Visit 11/26/2025 11/26/2024 Social Influencers of Health Screening 11/26/2025 11/26/2024 Falls Risk Assessment 11/28/2025 11/28/2024, 025 Hypertension/CHF/CAD Annual BMP Blood Test 11/28/2025 11/28/2024, 11/27/2024, 11/26/2024, Additional history exists DTaP,Tdap,and Td Vaccines (3 - Td or Tdap) 06/11/2027 06/11/2017, 01/03/2012 Cholesterol Screening (Lipid Panel) 07/02/2029 07/02/2024, 12/29/2021 Pneumococcal Vaccine: 50+ Years Completed 09/30/2018, 06/11/2017, 03/03/2008 Zoster Vaccines Completed 05/12/2021, 02/15, 04/15/2009 Depression Screening Completed 11/26/2024, 11/22/19 24 HIB Vaccines Aged Out No longer eligi ble based on patient's age to complete this topic HPV Vaccines Aged Out No longer eligi ble based on patient's age to complete this topic Hepatitis A Vaccines Aged Out No long er eligible based on patient's age to complete this topic Hepatitis B Vaccines Aged Out No long er eligible based on patient's age to complete this topic IPV Vaccines Aged Out No longer eligi ble based on patient's age to complete this topic MMR Vaccines Aged Out No longer eligi ble based on patient's age to complete this topic Meningococcal ACWY Vaccine Aged Out N o longer eligible based on patient's age to complete this topic Meningococcal B Vaccine Aged Out No l onger eligible based on patient's age to complete this topic RSV Immunization Patients Under 20 months Aged Out No longer eligible based on patient's age to complete this topic Varicella Vaccines Aged Out No longer eligible based on patient's age to complete this topic Procedures Procedure Name Priority Date/Time Associated Diagnosis Comments BASIC METABOLIC PANEL Routine 11/28/2024 5:25 AM EDT LIPID PANEL WITH REFLEX TO DIRECT LDL Routine 07/02/2024 9:42 AM EDT Hypertriglyceridemia HM DEPRESSION SCREENING Routine 11/22/2023 DXA BONE DENSITY STUDY 1+ SITS AXIAL SKEL Routine 11/02/2022 10:02 AM EDT Other specified disorders of bone density and structure, unspecified site from Last 3 Months or Most Recently Relevant to Health Maintenance Results * (ABNORMAL) Basic metabolic panel (11/28/2024 5:25 AM EDT) Sodium 140 133 - 145 mmol/L LAB CHEMISTRY METHOD 11/28/2024 7:28 AM [facility] Potassium 4.5 3.5 - 5.5 mmol/L LAB CHEMISTRY METHOD 11/28/2024 7:28 AM [facility] Chloride 107 96 - 110 mmol/L LAB CHEMISTRY METHOD 11/28/2024 7:28 AM [facility] CO2 26 21 - 32 mmol/L LAB CHEMISTRY METHOD 11/28/2024 7:28 AM [facility] Anion Gap 7 3 - 11 LAB CHEMISTRY METHOD 11/28/2024 7:28 AM [facility] Glucose 91 70 - 100 mg/dL LAB CHEMISTRY METHOD 11/28/2024 7:28 AM [facility] BUN 36(H) 5 - 25 mg/dL LAB CHEMISTRY METHOD 11/28/2024 7:28 AM [facility] Comment:Results verified by repeat testing Creatinine 1.09 0.50 - 1.10 mg/dL LAB CHEMISTRY METHOD 11/28/2024 7:28 AM [facility] eGFR 51(L) >=60 mL/min/1. 73m2 LAB CHEMISTRY METHOD 11/28/2024 7:28 AM [facility] Comment:Calculation based on the Chronic Kidney Disease Epidemiology Collaboration (CKD-EPI) equation refit without adjustment for race. BUN/Creatinine Ratio 33.0 LAB CHEMISTRY METHOD 11/28/2024 7:28 AM [facility] Calcium 9.4 8.5 - 10.5 mg/dL LAB CHEMISTRY METHOD 11/28/2024 7:28 AM [facility] Blood Venous blood specimen / Unknown Venipuncture / Unknown 11/28/2024 5:25 AM EDT 11/28/2024 6:18 AM EDT us Roseann Bonilla MD LAB BLOOD ORDERABLES Final Result [facility] [address] [place] [address], [place] [phone] * (ABNORMAL) Lipid panel with reflex to direct LDL (07/02/2024 9:42 AM EDT) Cholesterol 167 0 - 200 mg/dL LAB CHEMISTRY METHOD 07/02/2024 1:[address] [facility] Triglycerides 158(H) 0 - 150 mg/dL LAB CHEMISTRY METHOD 07/02/2024 1:[address] [facility] HDL 52 >=40 mg/dL LAB CHEMISTRY METHOD 07/02/2024 1:[address] [facility] LDL Calculated 83 0 - 100 mg/dL LAB CHEMISTRY METHOD 07/02/2024 1:[address] [facility] VLDL Cholesterol Madi 31.6 mg/dL LAB CHEMISTRY METHOD 07/02/2024 1:[address] [facility] Non HDL Chol. (LDL+VLDL) 115 <145 mg/dL LAB CHEMISTRY METHOD 07/02/2024 1:[address] [facility] Chol/HDL Ratio 3.2 0.0 - 4.4 LAB CHEMISTRY METHOD 07/02/2024 1:[address] [facility] Blood Venous blood specimen / Unknown Venipuncture / Unknown 07/02/2024 9:42 AM EDT 07/02/2024 9:42 AM EDT us Alona Yanez MD LAB BLOOD ORDERABLES Final Resul t [facility] [address] [place] [address], * Depression Screening (11/22/2023) Depression Screening Abstracted us Historical Provider HEALTH MAINTENANCE Final Result * DXA BONE DENSITY STUDY 1+ SITS AXIAL SKEL (11/02/2022 10:02 AM EDT) Anatomical Region Laterality Modality Bone Densitometr y 09/19/2022 10:1 2 AM EDT Narrative 11/02/2022 2:59 PM EDT BONE DENSITY Lumbar Spine T-score is -0.7 (SD relative to 20-29 y/o adult) Z-score is +2.0 (SD relative to age matched peers) This is normal by criteria defined by the WHO. Left Hip T-score is -2.1 Z-score is +0.3 This is consistent with osteopenia by criteria defined by the WHO. Comparison exam(s): no statistically significant change in the bone density of the hip and lumbar spine when compared to most recent bone density examination Confidence level is +/-95%. Impression: Based on the World Health Organization criteria, Briana Jones should be classified as having osteopenia. The [facility] Department of Internal Medicine recommends using National Osteoporosis Foundation (NOF) guidelines in treatment decisions related to osteoporosis. NOF guidelines suggest considering treatment for postmenopausal women and men aged 50 or older presenting with the following: History of hip or vertebral fracture. T-score less than or equal to -2.5 (DXA) at the femoral neck, total hip, or spine, after appropriate evaluation to exclude secondary causes. Low bone mass (T-score between -1.0 and -2.5 at the femoral neck or spine) AND a 10-year probability of a hip fracture greater than or equal to 3% OR a 10-year probability of a major osteoporosis-related fracture greater than or equal to 20% based on the [place]-adapted WHO algorithm Please note that all treatment decisions require clinical judgment and consideration of individual patient factors, including patient preferences, co-morbidities, previous drug use, risk factors not captured in the FRAX model (e.g., frailty, falls, vitamin D deficiency, increased bone turnover, interval significant decline in bone density) and possible under- or over-estimation of fracture risk by FRAX. Procedure Note Jacy Segovia MD - 05/22/2023 BONE DENSITY Lumbar Spine T-score is -0.7 (SD relative to 20-29 y/o adult) Z-score is +2.0 (SD relative to age matched peers) This is normal by criteria defined by the WHO. Left Hip T-score is -2.1 Z-score is +0.3 This is consistent with osteopenia by criteria defined by the WHO. Comparison exam(s): no statistically significant change in the bonedensity of the hip and lumbar spine when compared to most recent bonedensity examination Confidence level is +/-95%. Impression: Based on the World Health Organization criteria, Briana Jones should beclassified as having osteopenia. The [facility] Department of Internal Medicine recommendsusing National Osteoporosis Foundation (NOF) guidelines in treatmentdecisions related to osteoporosis. NOF guidelines suggest consideringtreatment for postmenopausal women and men aged 50 or older presentingwith the following: History of hip or vertebral fracture. T-score less than or equal to -2.5 (DXA) at the femoral neck, total hip,or spine, after appropriate evaluation to exclude secondary causes. Low bone mass (T-score between -1.0 and -2.5 at the femoral neck or spine)AND a 10-year probability of a hip fracture greater than or equal to 3% ORa 10-year probability of a major osteoporosis-related fracture greaterthan or equal to 20% based on the [place]-adapted WHO algorithm Please note that all treatment decisions require clinical judgment andconsideration of individual patient factors, including patientpreferences, co-morbidities, previous drug use, risk factors not capturedin the FRAX model (e.g., frailty, falls, vitamin D deficiency, increasedbone turnover, interval significant decline in bone density) and possibleunder- or over-estimation of fracture risk by FRAX. Erma FROST IMRyan DXA PROCEDURES Final Resu lt from Last 3 Months or Most Recently Relevant to Health Maintenance Insurance [place] [phone] Advance Directives Documents on File Type Date Recorded Patient Medical Science Liaison Expl anation Health Care Decision (hx) 04/24/2023 AD WEBB DIRECTIVE Health Care Decision (hx) 04/24/2023 AD WEBB DIRECTIVE Health Care Decision (hx) 04/24/2023 AD WEBB DIRECTIVE Health Care Decision (hx) 04/21/2023 AD WEBB DIRECTIVE Health Care Decision (hx) 04/21/2023 AD WEBB DIRECTIVE Health Care Decision (hx) 04/21/2023 AD WEBB DIRECTIVE Health Care Decision (hx) 04/20/2023 AD WEBB DIRECTIVE Health Care Decision (hx) 04/20/2023 AD WEBB DIRECTIVE Health Care Decision (hx) 04/20/2023 AD WEBB DIRECTIVE * Full Code - Default (Latest Code Status on File) Date Activated Date Inactivated Comments 11/26/2024 7:15 PM 11/28/2024 3:17 PM This is orde r is used when code status has not been discussed with the patient, or code status is otherwise unknown/unconfirmed To update the patient's code status, place a code status order. Do not modify or discontinue any currently active code status orders. Care Teams Manufacturing Technology Professor Relationship Specialty Start Date End Date Alona Yanez MD [address] [place] [phone] PCP - General Internal Medicine 05/28/15
--- OUTSIDE RECORDS SUMMARY | 2025-03-26 00:58 | XMS_ITS | Clinical Summary ---
Author Organization [facility] Address [address] [place] [address] Care Team Providers Care Programming Director Name Role Phone Elham Blanchard MD Unavailable [phone] Yolanda Ferguson MD Unavailable Abbey Yanez MD Primary Care Provider Allergies Active Allergy Reactions Criticality Noted Date Comments Guaifenesin Nausea/GI Upset 01/16/2007 GI intolerance Medications ATENOLOL 50 MG Tab None Entered 03/03/2015 Active SYNTHROID 75 MCG Tab None Entered 02/25/2015 Active Multiple Vitamins-Minera ls (PRESERVISION AREDS 2) Cap None Entered Acti ve Active Problems Problem Noted Date Diagnosed Date 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 HTN (hypertension), benign 05/08/2012 Advanced directives 02/08/2012 Overview (09/13/2014): Lotus Polo FHx: ovarian cancer 02/07/2012 Elevated BP 02/07/2012 Overview (04/02/2016): Macular degeneration of both eyes 02/28/2011 Vitamin D deficiency 04/21/2010 Overview (03/12/2015): Lung disease, chronic obstructive 09/02/2008 Sleep apnea 01/16/2007 Osteopenia 01/16/2007 Cancer of breast, intraductal 01/16/2007 Overview (09/13/2014): left Asthma 01/16/2007 Overview (03/12/2015): Menopause Immunizations Immunization Administration Dates Next Due Influenza (SEASONAL) - 01/12/2011,2009,02/09/2009,2007,01/16/2007,02/22/2000 Influenza,injectable,quad,pr eservativ e 02/07/2012 PPV23 (Pneumovax) 03/03/2008 Td (adult), adsorbed 05/26/2002 Tdap - 01/03/2012 Zoster (Zostavax) 04/15/2009 Family History Medical History Relation Name Comments Heart Disorder Father CAD/PVD Other Father HTN Other Mother ovarian cancer Relation Name Status Comments Father (Age 60) Mother (Age 87) Social History Tobacco Use Types Packs/Day Years Used Date Smoking Tobacco: Never Smokeless Tobacco: Never Alcohol Use Standard Drinks/Week Comments Yes 0 (1 standard drink = 0.6 oz pure alcohol) Less than 1 per week - very seldom Comments Unknown Sex and Gender Information Value Date Recorded Sex Assigned at Not on file Legal Sex Female 8:29 PM EST Gender Identity Not on file Sexual Orientation Not on file Occupation Industry Job Start Date Job End Date retired Not on file Not on file Not on file Last Filed Vital Signs Vital Sign Reading Time Taken Comments Blood Pressure 108/70 09/11/2012 9:18 AM EDT Pulse 70 09/11/2012 9:18 AM EDT Temperature 36.5 C (97.7 F) 05/28/2012 10:51 AM EST Respiratory Rate 16 01/16/2007 12:00 AM EDT Oxygen Saturation 97% 08/18/2010 10:35 AM EDT Inhaled Oxygen Concentration - - Weight 82.7 kg (182 lb 6.4 oz) 09/11/2012 9:18 A M EDT Height 169.4 cm (5' 6.7 ) 08/21/2012 9:59 AM EDT Body Mass Index 28.83 08/21/2012 9:59 AM EDT Plan of Treatment Health Maintenance Due Date Last Done Comments Pneumococcal 50+ years (2 of 2 - PCV) 03/03/2009 03/03/2008 Zoster (Shingrix) (2 of 3) 06/10/2009 04/15/2009 RSV (1 - 1-dose 75+ series) 2016 DTaP/Tdap/Td (2 - Td or Tdap) 01/02/2022 01/03/2012, 05/26/2002 COVID-19 Vaccine ( season) 2024 Influenza (#1) 2024 02/07/2012, 12/16, 12/29/2009, Additional history exists Zoster (Zostavax) Discontinued 04/15/2009 Bone Density Completed 01/04/2010, 02/06/2007 Mammogram/Breast Imaging Discontinued 012, 03/15/2011, 03/14/2010, Additional history exists Pap Smear Discontinued 08/21/2012, 01/15, 04/01/2009, Additional history exists HPV Vaccine (No Doses Required) Completed Hep A Aged Out No longer eligi ble based on patient's age to complete this topic Hep B Aged Out No longer eligi ble based on patient's age to complete this topic Hib Aged Out No longer eligi ble based on patient's age to complete this topic Meningococcal ACWY Aged Out No longer eligible based on patient's age to complete this topic Procedures * Due to [place] Primo1D law, this organization might not be sharing negative HIV tests. Procedure Name Priority Date/Time Associated Diagnosis Comments PAP TEST Routine 08/21/2012 10:50 AM EDT MAMMOGRAPHY DIGITAL NON SCREEN BILATERAL Routine 03/18/2012 12:00 AM EST DXA BONE DENSITY STUDY 1+ SITS AXIAL SKEL Routine 01/04/2010 from Last 3 Months or Most Recently Relevant to Health Maintenance Results * Due to [place] Primo1D law, this organization might not be sharing negative HIV tests. * PAP TEST (08/21/2012 10:50 AM EDT) PAP Smear NILM 08/29/2012 6:45 PM EDT [facility] Comment: GENERAL CATEGORY: NEGATIVE FOR INTRAEPITHELIAL LESION OR MALIGNANCY. . SPECIMEN ADEQUACY: Satisfactory for evaluation. Transformation zone component indeterminate or not applicable (vaginal specimen, atrophy, etc.). . COMMENT: Atrophy. . APRLS/APRLS Specimen(s)/OCCUPATIONAL HEALTH NURSE MANAGER Information: THINPREP CERVICAL/ENDOCERVICAL, 20 cc of fluid Total # of Slides/Specimen: 1 RELATED LABORATORY RESULTS Ord Date: 08/21/2012 Test Name Collected Result Abnormal Range HPV high 08/21/2012 Positive AB Negative risk The slide was processed by the [employer] Imaging System, and was rescreened or reviewed by a power engineer Screened by: HELLEN VENCES, SIGNED OUT BY ELECTRONIC Vice President Talent Management SIGNATURE Signed Out by: HELLEN VENCES Vice President Talent Management Date Reported: 08/29/2012 BRIANA JONES [id number] GYNECOLOGIC CYTOLOGY REPORT Printed: 08/29/2012 6:38 PM Page 1 of 1 08/21/2012 10:5 0 AM EDT 08/21/2012 10:50 AM EDT Elham Blanchard MD PATHOLOGY Final R esult [facility] * MAMMOGRAPHY DIGITAL NON SCREEN BILATERAL (03/18/2012 12:00 AM EST) ATTACHED DOCUMENT 03/18/2012 12:00 AM EST Anatomical Region Laterality Modality Other 03/18/2012 03/18/2012 Narrative Transcriptions Cassandra Sorto - 10/12/2014 12:00 AM EDT Cassandra Sorto IMAGING-ATRIUS Final Result * DXA BONE DENSITY STUDY 1+ SITS AXIAL SKEL (01/04/2010) ATTACHED DOCUMENT 01/04/2010 12:00 AM EDT Anatomical Region Laterality Modality Other 01/04/2010 01/04/2010 Narrative Transcriptions Britney Martinez - 10/08/2014 12:00 AM EDT Cassandra Sorto IMAGING - NO INBASKET RTG Final Result from Last 3 Months or Most Recently Relevant to Health Maintenance Insurance [facility] FEE FOR SERVICE MEDICARE Advance Directives Documents on File Type Date Recorded 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
--- OUTSIDE RECORDS SUMMARY | 2025-03-26 00:58 | XMS_ITS ---
Author Name [facility] Organization Unknown Care Team Organization Name Specialty Phone Email Start Date End Da te [facility] Alona Yanez Primary Care 02/21/2022 4
[2025-03-26] MEDS: 0.9 % Sodium Chloride Flush 3 ML SYRINGE IVFLUSH ×3 (01:53→16:42)
[2025-03-26 04:07] LABS: Hematocrit 43.9 % (37.0-47.0); Hemoglobin 14.5 g/dl (12.0-16.0); Mean Corpuscular HGB Conc 33.0 g/dl (31.0-35.0); Mean Corpuscular Hemoglobin 31.4 pg (27.0-33.0); Mean Corpuscular Volume 95.0 fL (80.0-98.0); NRBC Abs Auto 0.000 X10*3/uL (0.0-0.012); NRBC Pct Auto 0.0 /100WBC (0.0-0.2); Platelet Count 194 X10*3/uL (160-400); Red Blood Count 4.62 X10*6/uL (4.20-5.50); White Blood Count 8.6 X10*3/uL (4.8-10.8)
[2025-03-26 04:30] LABS: Alanine Aminotransferase 10 U/L (0-31); Albumin Level 4.0 g/dL (3.5-5.0); Alkaline Phosphatase 85 U/L (39-117); Anion Gap 14 (12-20); Aspartate Amino Transferase 17 U/L (5-31); Blood Urea Nitrogen 23 mg/dL (9-16); Calcium 9.2 mg/dL (8.4-10.2); Carbon Dioxide 20 mmol/L (22-29); Chloride 109 mmol/L (96-108); Creatinine Clr Calc Pharmacy 59.8; Estimated Glomerular Filt Rate > 60; Potassium 4.0 mmol/L (3.3-5.1); Sodium 139 mmol/L (135-145); Total Protein 6.8 g/dL (6.5-8.0)
--- NOTE | 2025-03-26 05:00 | PC.NURSE ---
Pt ambulated to BR independently with staff standby assist.
--- NOTE | 2025-03-26 07:16 | PC.NURSE ---
Pt from home, came from local gas station where patient was found confused and not making sense. Patient initially had aphasia per EMS and short-term memory loss. Patient's left side of the face was drooped with paralysis. Patient stated to the ED provider that she has baseline Scott's palsy which could explain this finding but this scenario writer used phone to allow patient to see her face currently and she states that those changes on the left side are new. LKW was approximately 4PM after pt awakened from a nap. Here in ED Head CT was negative for any acute findings, MRI of the brain negative for acute/subacute infarct Patient is being admitted for TIA rule out CVA. Plan for Echo pending, Neurology consulted, OT to complete MOCA: ? dementia, CM/SW consult placed, pt lives alone with no family or support. Pt A&Ox3, forgetful, ambulates independently. NSR on the monitor. 20G to L AC.
--- NOTE | 2025-03-26 08:58 | P.CONCA_ITS ---
History of Present Illness History of Present Illness Date of Service: 03/26/25 Requesting physician: Zoila Lewis Consult reason: troponin elevation Chief complaint: TIA rule out CVA Narrative: I was consulted to see Briana for minimally elevated troponin. Patient is 84-year-old female came to the hospital because of confusion. There was suspicion for possible TIA/CVA. She underwent a brain MRI which did not show any acute events. Patient provides good history but that has some gaps. Patient says she does not realize while she was brought here but she says she was on store yesterday and then it got dark and when she came out Karen's confused and they call 911 and they brought her here. She had no chest pain no shortness of breath no other cardiac symptoms. Troponins were done which were minimally elevated 56. EKGs shows normal rhythm. She has no recent cardiac symptoms. She does have history of asthma and says she might have had hypertension and currently on atenolol therapy. She does complain of lightheadedness. She also had another episode recently where she was driving and does not know how she ended up being on the sidewalk. She denies any loss of consciousness although this is difficult to a certain. Patient denies any heart failure symptoms. She is noted to be significantly hypertensive at current time. she says she otherwise lives independently at home. Review of Systems 2 Constitutional: Constitutional: Reports no additional constitutional complaints Eyes: Eyes: Reports no additional eye complaints Cardiovascular: Cardiovascular: Reports no additional cardiovascular complaints Respiratory: Respiratory: Reports no additional respiratory complaints Gastrointestinal: Gastrointestinal: Reports no additional gastrointestinal complaints Genitourinary: Genitourinary: Reports no additional female genitourinary complaints Musculoskeletal: Musculoskeletal: Reports no additional musculoskeletal complaints Psychiatric: Psychiatric: Reports no additional psychiatric complaints Endocrine: Endocrine: Reports no additional endocrine complaints [facility] Past Medical History Medical History Scott's palsy Glaucoma Macular degeneration Asthma Social History Social History Alcohol intake: never Patient Tobacco Use Status: Never used Tobacco Smoked in Last 30 Days: No Use of substances other than those prescribed or required for medical reasons: No Advance Directives: No Advance Directives Information Provided: No Patient : No Travel History Has Patient Experienced Ebola Symptoms: No Meds Allergies Allergy/AdvReac Type Severity Reaction Status Date / Time No Known Allergies Allergy Verified 03/25/25 17:44 Active Medications: Current Medications Acetaminophen (Acetaminophen 325 Mg Tablet) 650 mg PO Q6H PRN PRN Reason: Pain, Mild 1-3,fever,headache Albuterol/Ipratropium (Albuterol/Iprat 2.5/0.5mg 3 Ml Ampul.Neb) 3 ml INHALE Q4H PRN PRN Reason: Shortness of Breath/Wheezing Aspirin (Aspirin 81 Mg Tab.Chew) 81 mg PO DAILY [facility] Calcium Carbonate (Calcium Carbonate 750 Mg Tab.Chew) 750 mg PO Q4H PRN PRN Reason: Heartburn Magnesium Hydroxide (Milk Of Magnesia 30 Ml Oral.Susp) 30 ml PO DAILY PRN PRN Reason: Constipation Polyethylene Glycol (Polyethylene Glycol 3350 17 Gm Powd.Pack) 17 gm PO DAILY PRN PRN Reason: Constipation Senna (Sennosides 8.6 Mg Tablet) 17.2 mg PO BEDTIME [facility] Last Admin: 03/25/25 21:20 Dose: 17.2 mg Sodium Chloride (0.9 % Sodium Chloride Flush 3 Ml Syringe) 3 ml IVFLUSH QSHIFT [facility] Last Admin: 03/26/25 01:53 Dose: 3 ml Home Medications ?Medication ?Instructions ?Recorded ?Confirmed ?Last Taken ?Type albuterol sulfate 90 mcg/actuation 2 puff inhalation Q 4H PRN wheezing 03/25/25 03/25/25 Unknown History aerosol inhaler atenolol 50 mg tablet 50 mg PO DAILY 03/25/2503/1603/23/25 History calcium 600 mg (as carbonate)-vit 1 tab PO BID 5 03/25/25 03/23/25 History D3 20 mcg (800 unit) chewable tablet (Caltrate plus D) cetirizine 10 mg tablet 10 mg PO DAILY PRN Allergy S ymptoms 03/25/25 03/25/25 Unknown History cholecalciferol (vitamin D3) 50 50 mcg PO DAILY 03/25/25 03/23/25 History mcg (2,000 unit) tablet (Vitamin D3) fluticasone propionate 50 2 spray intranasal DAILY 02/0703/25/25 03/23/25 History mcg/actuation nasal spray,suspension latanoprost 0.005 % eye drops 1 drp ophthalmic (eye) B EDTIME 03/25/25 03/25/25 03/23/25 History levothyroxine 75 mcg tablet 75 mcg PO DAILY@0600 03/2503/25/25 03/23/25 History Physical Exam 2 Vital Signs: Vital Signs: Last Vital Signs Temp 97.6 F 03/26/25 06:13 Pulse 87 03/26/25 06:13 Resp 20 03/26/25 06:13 BP 179/104 H 03/26/25 06:13 Pulse Ox 97 03/26/25 06:13 O2 Del Method Room Air 03/26/25 06:13 BMI result Body Mass Index 31.0 Const: General: cooperative, comfortable, no acute distress, well developed, alert and awake Nutritional Appearance: average body habitus and well nourished Orientation/consciousness: patient oriented x3 Limitations: no limitations HEENT: Head: Yes normocephalic and Yes atraumatic Neck: Neck: Yes trachea midline, Yes supple and Yes no JVD Resp: Effort & Inspection: normal respiratory effort Auscultation: clear to auscultation bilaterally Cardio: Jugular venous distension: no JVD Rate: regular rate Rhythm: r egular rhythm Heart sounds: S1 normal heart sound present, S2 normal heart sound present, no click, no gallops, no murmurs and no rubs GI: Auscultation: normal bowel sounds Skin: General skin exam: no rashes or lesions noted Neuro: General: patient oriented x3 and no focal motor deficits Extrem: General: Yes no clubbing, cyanosis or edema Objective Labs and Meds 03/26/25 03:45 03/26/25 03:45 Lab results: Laboratory Results - last 24 hr 03/25/25 03/25/25 03/25/25 17:37 17:41 17:48 WBC 7.6 RBC 5.04 Hgb 15.8 Hct 48.6 H MCV 96.4 MCH 31.3 MCHC 32.5 RDW 13.3 Plt Count 201 MPV 10.0 Immature Gran % (Auto) 0.7 H Neut % (Auto) 55.3 Lymph % (Auto) 28.0 Sanders % (Auto) 8.0 Eos % (Auto) 7.1 H Baso % (Auto) 0.9 Lymph # (Auto) 2.1 Sanders # (Auto) 0.6 Eos # (Auto) 0.5 H Baso # (Auto) 0.1 Abs Immat Gran (auto) 0.05 H Absolute Neuts (auto) 4.2 Absolute Nucleated RBC 0.000 Nucleated RBC % (auto) 0.0 PT 11.9 Whole Blood PT 12.1 INR 1.0 Whole Blood INR 1.0 APTT 28.9 Sodium 141 Potassium 4.3 Chloride 107 Carbon Dioxide 24 Anion Gap 14 BUN 27 H Creatinine 0.98 Estim Creat Clear Calc 50.0 Estimated GFR 54 POC Glucose 98 Random Glucose 94 Calcium 9.8 Magnesium 2.1 Total Bilirubin AST ALT Alkaline Phosphatase Troponin I High Sens 56.0 H* NT-Pro-B Natriuret Pep Total Protein Albumin Triglycerides 86 Cholesterol 163 LDL Cholesterol, Calc 98 HDL Cholesterol 48 TSH 3.29 Ethyl Alcohol < 10 03/25/25 03/26/25 19:12 03:45 WBC 8.6 RBC 4.62 Hgb 14.5 Hct 43.9 MCV 95.0 MCH 31.4 MCHC 33.0 RDW 13.3 Plt Count 194 MPV 9.9 Immature Gran % (Auto) Neut % (Auto) Lymph % (Auto) Sanders % (Auto) Eos % (Auto) Baso % (Auto) Lymph # (Auto) Sanders # (Auto) Eos # (Auto) Baso # (Auto) Abs Immat Gran (auto) Absolute Neuts (auto) Absolute Nucleated RBC 0.000 Nucleated RBC % (auto) 0.0 PT Whole Blood PT INR Whole Blood INR APTT Sodium 139 Potassium 4.0 Chloride 109 H Carbon Dioxide 20 L Anion Gap 14 BUN 23 H Creatinine 0.82 Estim Creat Clear Calc 59.8 Estimated GFR > 60 POC Glucose Random Glucose 88 Calcium 9.2 D Magnesium Total Bilirubin 0.8 AST 17 ALT 10 Alkaline Phosphatase 85 Troponin I High Sens 56.9 H* NT-Pro-B Natriuret Pep 96.3 Total Protein 6.8 Albumin 4.0 Triglycerides Cholesterol LDL Cholesterol, Calc HDL Cholesterol TSH Ethyl Alcohol EKGs shows normal sinus rhythm with normal EKGs Assessment and Plan (1) Elevated troponin: Status: Acute elevated troponin this elderly woman without any obvious cardiac symptoms her EKGs changes with no clear rise and fall suggestive of myocardial injury or acute coronary syndrome. Significance of this minimally elevated troponins are unclear at this point time. Could represent subendocardial ischemia from uncontrolled blood pressure. Would obtain an echocardiogram to assess for the same. Better control blood pressure is necessary. Patient does however also complain of some orthostatic lightheadedness symptoms and may have issues with labile blood pressure. Please check orthostatic vital signs. No other cardiac workup is indicated due to lack of any symptoms at this point in time. Will sign of the case. Thank you for allowing me to partake in her care Procedures Date of Service Date of Service: 03/26/25
--- NOTE | 2025-03-26 09:03 | PC.NURSE ---
PT at bedside. Pt moved over to hospital bed.
--- NOTE | 2025-03-26 09:20 | PM.NEUROCN ---
History of Present Illness Data of Consult Service Date: 03/26/25 Primary Care Provider: Alona Yanez MD HPI Reason for consult: Confusion 84 years old woman who probably has chronic left Scott's palsy and dementia who was brought to hospital in a confused state. She said that she was not supposed to drive at night but went out and then did not know where she was and what happened and she ended up in hospital. He did not have full recollection of what had happened. Initial head CT did not reveal any acute abnormality. CTA of brain and neck also did not reveal any vascular lesion and then an MRI of brain was done, which also did not reveal any acute abnormality and consultation was requested. She was not having any obvious signs of infection. Review of Systems Review of Systems: General: No recent change in weight HEENT: No cold or flu-like illness, complain of blurred vision related to macular degeneration Cardiovascular: No complain of chest pain or palpitation Respiratory: No shortness of breath or wheezing Gastrointestinal: No nausea or vomiting Musculoskeletal: No acute pain Genitourinary: No loss of bowel bladder difficulties Neurological: Complain of confusion PMFSH Past Medical History Medical History Scott's palsy Glaucoma Macular degeneration Asthma Social History Social History Alcohol intake: never Patient Tobacco Use Status: Never used Tobacco Smoked in Last 30 Days: No Use of substances other than those prescribed or required for medical reasons: No Advance Directives: No Advance Directives Information Provided: No Patient : No Travel History Has Patient Experienced Ebola Symptoms: No Meds Allergies Allergy/AdvReac Type Severity Reaction Status Date / Time No Known Allergies Allergy Verified 03/25/25 17:44 Active Medications: Current Medications Acetaminophen (Acetaminophen 325 Mg Tablet) 650 mg PO Q6H PRN PRN Reason: Pain, Mild 1-3,fever,headache Albuterol/Ipratropium (Albuterol/Iprat 2.5/0.5mg 3 Ml Ampul.Neb) 3 ml INHALE Q4H PRN PRN Reason: Shortness of Breath/Wheezing Aspirin (Aspirin 81 Mg Tab.Chew) 81 mg PO DAILY BERNICE Calcium Carbonate (Calcium Carbonate 750 Mg Tab.Chew) 750 mg PO Q4H PRN PRN Reason: Heartburn Magnesium Hydroxide (Milk Of Magnesia 30 Ml Oral.Susp) 30 ml PO DAILY PRN PRN Reason: Constipation Polyethylene Glycol (Polyethylene Glycol 3350 17 Gm Powd.Pack) 17 gm PO DAILY PRN PRN Reason: Constipation Senna (Sennosides 8.6 Mg Tablet) 17.2 mg PO BEDTIME [facility] Last Admin: 03/25/25 21:20 Dose: 17.2 mg Sodium Chloride (0.9 % Sodium Chloride Flush 3 Ml Syringe) 3 ml IVFLUSH QSHIFT [facility] Last Admin: 03/26/25 01:53 Dose: 3 ml Home Medications ?Medication ?Instructions ?Recorded ?Confirmed ?Last Taken ?Type albuterol sulfate 90 mcg/actuation 2 puff inhalation Q4H PRN wheezing 03/25/25 03/25/25 Unknown History aerosol inhaler atenolol 50 mg tablet 50 mg PO DAILY 03/25/25 03/25/25 03/23/25 History calcium 600 mg (as carbonate)-vit 1 tab PO BID 03/25/25 03/25/25 03/23/25 History D3 20 mcg (800 unit) chewable tablet (Caltrate plus D) cetirizine 10 mg tablet 10 mg PO DAILY PRN Allergy Symptoms 03/25/25 03/25/25 Unknown History cholecalciferol (vitamin D3) 50 50 mcg PO DAILY 03/25/25 03/25/25 03/23/25 History mcg (2,000 unit) tablet (Vitamin D3) fluticasone propionate 50 2 spray intranasal DAILY 03/25/25 03/25/25 03/23/25 History mcg/actuation nasal spray,suspension latanoprost 0.005 % eye drops 1 drp ophthalmic (eye) BEDTIME 03/25/25 03/25/25 03/23/25 History levothyroxine 75 mcg tablet 75 mcg PO DAILY@0600 03/25/25 03/25/25 03/23/25 History Physical Exam Vital Signs: Vital Signs: Last Vital Signs Temp 97.6 F 03/26/25 06:13 Pulse 103 H 03/26/25 09:06 Resp 22 H 03/26/25 09:06 BP 133/84 03/26/25 09:06 Pulse Ox 90 L 03/26/25 09:06 O2 Del Method Room Air 03/26/25 09:06 BMI result Body Mass Index 31.0 Neuro: Other: Mental Status: She is alert and awake with normal spontaneity and fluency of speech. She did not know where she was. She was following commands. Cranial Nerves: CN II: Visual heaton full to confrontation, visual acuity intact. CN III, IV, : Pupils equal, round, reactive to light and accommodation. Extraocular movements are normal. CN V: Facial sensation is normal. CN VII: Moderate left peripheral type facial weakness. CN VIII: Hearing intact to bedside conversation is normal. CN IX, X: Palate elevates symmetrically. CN XI: Shoulder shrug and head turn symmetrical. CN XII: Tongue midline without atrophy or fasciculations. Motor: No obvious focal arm or leg weakness. Reflexes: Deep tendon reflexes are trace to absent with flexor plantars. Coordination: [id number] is okay. Extrapyramidal: Full facial expressions and blinking. No rigidity. Movements are appropriate with no tremor or abnormality. Speech: Normal; no dysarthria or tremor. Results Labs 03/26/25 03:45 03/26/25 03:45 Labs: Short CBC 03/25/25 03/26/25 Range/Units 17:48 03:45 WBC 7.6 8.6 (4.8-10.8) X10*3/uL Hgb 15.8 14.5 (12.0-16.0) g/dl Hct 48.6 H 43.9 (37.0-47.0) % Plt Count 201 194 (160-400) X10*3/uL BMP 03/25/25 03/26/25 17:48 03:45 Sodium 141 139 Potassium 4.3 4.0 Chloride 107 109 H Carbon Dioxide 24 20 L BUN 27 H 23 H Creatinine 0.98 0.82 Calcium 9.8 9.2 D Liver Function 03/26/25 Range/Units 03:45 Total Bilirubin 0.8 (0.0-1.0) mg/dL AST 17 (5-31) U/L ALT 10 (0-31) U/L Alkaline Phosphatase 85 (39-117) U/L Albumin 4.0 (3.5-5.0) g/dL [address] [address] Magnetic Resonance Report Signed Patient: Briana Freitas MR#: [id number] : 1940 Acct:[id number] Age/Sex: 84 / F ADM Date: 03/25/25 Loc: [facility]: Elham Bui [facility] Ordering Physician: Elham Bui [facility] Date of Service: 03/25/25 Procedure(s): MR head/brain [facility] Accession Number(s): [id number] cc: Elham Bui [facility]; Alona Yanez MD~ Reason for Exam: CVA suspected CLINICAL HISTORY: CVA suspected MR Brain without gadolinium Comparison: CT head and CTA head earlier the same day. Findings: No restricted diffusion. Mild multifocal T2/FLAIR hyperintensities in the white matter, likely secondary to chronic ischemic small vessel disease. No intra-axial mass or hemorrhage. No midline shift. No hydrocephalus. Vascular flow voids are intact. The lenses have been replaced. Minimal mucoperiosteal thickening of the ethmoid sinuses. The mastoid air cells are clear. No focal bone lesion. IMPRESSION: No acute/subacute infarct. CLINICAL HISTORY: aphasia CT angiography head and neck with contrast. 3D Postprocessing. Comparison: None provided Findings: Aortic arch and arch vessels are patent. Atherosclerotic vascular disease. Bilateral common carotid arteries are patent with retropharyngeal course. Mild calcified plaque at bilateral carotid bifurcations with no hemodynamically significant stenosis. Bilateral external carotid arteries are patent. Bilateral vertebral arteries are patent. Bilateral intracranial internal carotid arteries are patent. Atherosclerotic vascular disease of cavernous segments bilaterally with no hemodynamically significant stenosis. Basilar artery enhances normally. Bilateral anterior, middle and posterior cerebral arteries are patent. No intracranial large vessel occlusion. No aneurysm. No abnormal intracranial enhancement. The visualized thyroid gland is unremarkable. No cervical mass or fluid collection. Lung apices clear. No acute fracture. Degenerative changes in cervical spine. IMPRESSION: 1. CT angiography neck demonstrates atherosclerotic vascular disease with no hemodynamically significant stenosis. 2. CT angiography brain demonstrates no intracranial large vessel occlusion. 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 She did not have full recollection of what had happened. Her workup revealed no obvious sign of infection but initial blood pressure was very high. Brain imaging did not reveal any acute lesion but it revealed multiple small ischemic lesions, some of them cortical an embolic looking. As far as episode of confusion is concerned, it might have been hypertension related but might also be seizure disorder or epileptic in nature. My recommendation is to obtain an EEG and control of blood pressure. In the meantime anti-platelet agent and statin therapy can also continue. In addition, she is advised not to drive following [facility] regulations. Procedures Date of Service Date of Service: 03/26/25
--- NOTE | 2025-03-26 12:39 | MHC.CM.PN ---
IMM 03/26/25 Pt. lives alone, she has a helper that comes to her home once a week and cleans, picks up her scripts and pt. said, helps her with whatever she needs. Task submitted to [facility] to determine if services are from them and if pt. can have increased services. Pt. said she thinks that she has had [facility] services in the past, but cannot remember from whom or when. HCP discussed, she wants to think about who she would assign to be her HCP. She was able to confirm her PCP: Alona Yanez MD. She said her car is at a parking lot in [place], with the [employer]. She said she has asked staff to call her sister, but they have not. CM let her know that staff do not have her sister's #. CM asked her sister's name: Lotus Polo, and where she lives, pt. could not say the location. CM will follow to assist with DCP.
--- NOTE | 2025-03-26 14:26 | HO.PM.IMPN ---
Subjective Subjective Date of Service: 03/26/25 Interval History: confusion Review of Systems seems somewhat improving confusion no fevers Review of Systems: Yes all other systems are reviewed and are negative Physical Exam Exam: Exam: Appearance: Alert.? Oriented X2. cvs: rrr, [id number] . res: clear to auscultation ,no rhonchii or wheezing abd: no rebound or guarding ,nt, bs present. ext pulses present , no cyanosis . neuro:move all ext. Vital Signs: Vital Signs: Last Vital Signs Temp 97.6 F 03/26/25 06:13 Pulse 100 03/26/25 13:59 Resp 22 H 03/26/25 09:06 BP 133/84 03/26/25 13:59 Pulse Ox 90 L 03/26/25 09:06 O2 Del Method Room Air 03/26/25 09:06 BMI result Body Mass Index 31.0 Objective Data Active Medications Acetaminophen (Acetaminophen 325 Mg Tablet) 650 mg PO Q6H PRN PRN Reason: Pain, Mild 1-3,fever,headache Albuterol Sulfate (Albuterol Sulfate 90 Mcg 8 Gm Inhaler) 2 puff INHALE Q4H PRN PRN Reason: Wheezing Albuterol/Ipratropium (Albuterol/Iprat 2.5/0.5mg 3 Ml Ampul.Neb) 3 ml INHALE Q4H PRN PRN Reason: Shortness of Breath/Wheezing Aspirin (Aspirin 81 Mg Tab.Chew) 81 mg PO DAILY [facility] Last Admin: 03/26/25 09:46 Dose: 81 mg Documented By: ANANDA Atenolol (Atenolol 50 Mg Tablet) 50 mg PO DAILY [facility]; Protocol Last Admin: 03/26/25 13:59 Dose: 50 mg Documented By: ANANDA Calcium Carbonate (Calcium Carbonate 750 Mg Tab.Chew) 750 mg PO Q4H PRN PRN Reason: Heartburn Calcium Carbonate/Cholecalciferol (Calcium + Vitamin D 250 Mg Tablet) 250 mg PO BID [facility] Fluticasone Propionate (Fluticasone Propionate Nasal 16 Gm Rosebud) 2 spray NOSTRIL-B DAILY [facility] Latanoprost (Latanoprost 0.005 % Ophth Kaya 2.5 Ml Drops) 1 drop EYE-BOTH BEDTIME [facility] Levothyroxine Sodium (Levothyroxine Sodium 75 Mcg Tablet) 75 mcg PO DAILY@0600 [facility] Last Admin: 03/26/25 13:59 Dose: 75 mcg Documented By: ANANDA Loratadine (Loratadine 10 Mg Tablet) 10 mg PO DAILY PRN PRN Reason: Allergy Symptoms Magnesium Hydroxide (Milk Of Magnesia 30 Ml Oral.Susp) 30 ml PO DAILY PRN PRN Reason: Constipation Polyethylene Glycol (Polyethylene Glycol 3350 17 Gm Powd.Pack) 17 gm PO DAILY PRN PRN Reason: Constipation Senna (Sennosides 8.6 Mg Tablet) 17.2 mg PO BEDTIME [facility] Last Admin: 03/25/25 21:20 Dose: 17.2 mg Documented By: JAMIE Sodium Chloride (0.9 % Sodium Chloride Flush 3 Ml Syringe) 3 ml IVFLUSH QSHIFT [facility] Last Admin: 03/26/25 09:46 Dose: 3 ml Documented By: ANANDA Vitamin D (Cholecalciferol (Vitamin D3) 25 Mcg Tablet) 50 mcg PO DAILY [facility] Labs 03/26/25 03:45 03/26/25 03:45 Labs: Laboratory Results - last 24 hr 03/25/25 03/25/25 03/25/25 17:37 17:41 17:48 MCV 96.4 MCH 31.3 MCHC 32.5 RDW 13.3 Plt Count 201 MPV 10.0 Immature Gran % (Auto) 0.7 H Neut % (Auto) 55.3 Lymph % (Auto) 28.0 [place] % (Auto) 8.0 Eos % (Auto) 7.1 H Baso % (Auto) 0.9 Lymph # (Auto) 2.1 [place] # (Auto) 0.6 Eos # (Auto) 0.5 H Baso # (Auto) 0.1 Abs Immat Gran (auto) 0.05 H Absolute Neuts (auto) 4.2 Absolute Nucleated RBC 0.000 Nucleated RBC % (auto) 0.0 PT 11.9 Whole Blood PT 12.1 INR 1.0 Whole Blood INR 1.0 APTT 28.9 Anion Gap 14 Estim Creat Clear Calc 50.0 Estimated GFR 54 POC Glucose 98 Random Glucose 94 Calcium 9.8 Magnesium 2.1 Total Bilirubin AST ALT Alkaline Phosphatase Troponin I High Sens 56.0 H* NT-Pro-B Natriuret Pep Total Protein Albumin Triglycerides 86 Cholesterol 163 LDL Cholesterol, Calc 98 HDL Cholesterol 48 TSH 3.29 Ethyl Alcohol < 10 03/25/25 03/26/25 19:12 03:45 MCV 95.0 MCH 31.4 MCHC 33.0 RDW 13.3 Plt Count 194 MPV 9.9 Immature Gran % (Auto) Neut % (Auto) Lymph % (Auto) [place] % (Auto) Eos % (Auto) Baso % (Auto) Lymph # (Auto) [place] # (Auto) Eos # (Auto) Baso # (Auto) Abs Immat Gran (auto) Absolute Neuts (auto) Absolute Nucleated RBC 0.000 Nucleated RBC % (auto) 0.0 PT Whole Blood PT INR Whole Blood INR APTT Anion Gap 14 Estim Creat Clear Calc 59.8 Estimated GFR > 60 POC Glucose Random Glucose 88 Calcium 9.2 D Magnesium Total Bilirubin 0.8 AST 17 ALT 10 Alkaline Phosphatase 85 Troponin I High Sens 56.9 H* NT-Pro-B Natriuret Pep 96.3 Total Protein 6.8 Albumin 4.0 Triglycerides Cholesterol LDL Cholesterol, Calc HDL Cholesterol TSH Ethyl Alcohol Assessment and Plan (1) Encephalopathy: Status: Acute (2) HTN (hypertension): Status: Acute Plan 84-year-old female currently experiencing poor memory both short-term and long-term but 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 Patient being admitted for TIA rule out CVA. Patient has no family in the local area. Attempted to reach patient's sister Lotus wilson and in [place] via information found online but both numbers were not working. Patient does not have a cell phone and has no numbers for her neighbor as well named clear. patient states she does have a history of Scott's palsy but when she saw her face this evening on admission she states that the left-sided droopiness and paralysis is new. as. possible encephalopathy-unclear etiology CT of the head and CTA of the head and neck negative for acute findings MRI of the brain negative for acute/subacute infarct Echocardiogram ordered plan: seen by OT-mild cognitive impairment continue aspirin 81 mg daily Lipid panel :triglycerides 86, cholesterol 163, LDL 98 and HDL 48 AIC pending neuro rec: eeg and blood pressure control,antiplatelets. she is advised not to drive following [facility] regulations. Elevated troponin 56, than 56.9 Telemetry Echo Cardiology consulted- trop flat,EKG negative for any ischemic changes, check echo ,orthostatic signs Hypertension:started back atenolol ,if blood pressure still not controlled we need to add blood pressure medication. 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 Patient currently asymptomatic No history of smoking Hypothyroidism Continue levothyroxine TSH 3.29 Macular degeneration/glaucoma Continue eyedrops once med rec completed DVT prophylaxis: Lovenox Med rec completed Full code status ongoing need for stay -cardiac /neuorlogy workup ,needs mental status /bp monitering as weall as orthostatic sign monitering Quality Stroke Does the patient have a stroke diagnosis?: No Reason for No Anti-thrombotic by Day Two: N/A - Med Ordered VTE Prior VTE?: No VTE Risk Level:: Medical - moderate - high VTE Device Contraindication: N/A - Device Ordered VTE Drug Contraindication: N/A - Med Ordered
--- NOTE | 2025-03-26 14:36 | MHC.EDTECH ---
late entry: compressions boots applied to pt this AM.
--- NOTE | 2025-03-26 18:39 | PC.NURSE ---
Ann Marie Freitas (stepdaughter): [phone], callback number
--- NOTE | 2025-03-26 20:18 | HO.NURTONUR ---
all information in admission worksheet
[2025-03-26] MEDS: Calcium + Vitamin D 250 MG TABLET PO (22:13)
[2025-03-27] VITALS (15 sets, daily range): BP systolic 130–193; BP diastolic 70–94; PULSE 61–81; RESP 16–18; TEMP 36.1–37; O2SAT 93–98
--- NOTE | 2025-03-27 | EEG_ITS ---
History: Scott's palsy, Glaucoma, Macular degeneration, Asthma Description: Patient was brought to hospital in a confused state. She said that she was not supposed to drive at night but went out and then did not know where she was and what happened and she ended up in hospital. She did not have full recollection of what had happened. Initial head CT did not reveal any acute abnormality. CTA of brain and neck also did not reveal any vascular lesion and then an MRI of brain was done, which also did not reveal any acute abnormality and consultation was requested. She was not having any obvious signs of infection. Medication: Acetaminophen Albuterol/Ipratropium Aspirin Calcium Carbonate Magnesium Hydroxide Polyethylene Glycol Senna Sodium Chloride Technical description:? Photic stimulation: Yes Hyperventilation:?Omitted Behavioral state: Cooperative State of Consciousness: Awake Sedation: None Handedness: Left Duration of study:? 29min ? ? 04sec This is a 16 channel EEG with an EKG lead. Patient is reported awake during the tracing. Background EEG rhythm is mixed theta beta with frequent intermittent right temporal sharply controlled theta range discharges and sometime sharp waves. Photic stimulation did not produce any significant driving. Hyperventilation was not performed. Cardiac lead did not produce any significant abnormality. 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
[2025-03-27] MEDS: 0.9 % Sodium Chloride Flush 3 ML SYRINGE IVFLUSH ×3 (00:15→19:53)
[2025-03-27] MEDS: Albuterol/Iprat 2.5/0.5MG 3 ML AMPUL.NEB INHALE (00:48)
--- NOTE | 2025-03-27 07:00 | CA_ITS ---
Transthoracic Echocardiogram Patient (Last, First, Middle): Briana Freitas, Gender: Female Date of : 1940 Age: 84 Procedure Date: 03/27/2025 Procedure Type: Transthoracic Echocardiogram [place] [facility] [place] Height: 170.18 cm Weight: 89.36 kg BSA: 2.01 m2 Heart Rate: 73 bpm BP: 172 / 84 mmHg Electron Beam Operator: KILEY Referring MD: Elham Bui [facility]- [facility] Elimination: Juaquin Solo MD Symptoms: CVA suspected Study Quality: Adequate w contrast ECG Rhythm: Sinus Conclusions: - 1. Normal LV ejection fraction of 65-70% with impaired relaxation filling pattern 2. Mild calcific aortic valve changes noted with normal cardiac valvular Dopplers 3. Normal RV systolic pressure 4. No gross pericardial effusion Findings Procedure Information Contrast agent, definity, is being given per protocol without apparent complications. Left Ventricle Normal left ventricular size, thickness, and systolic function. The visually estimated ejection fraction is between 65-70%. Spectral Doppler is indicative of an impaired relaxation filling pattern. E/E prime ratio is between 8 and 15 consistent with indeterminate filling pressures. Right Ventricle Normal right ventricular cavity size and systolic function. Atria The left atrium is likely dilated. There is lipomatous hypertrophy of the interatrial septum. There is no evidence of interatrial shunt. The right atrium is normal in size. Aortic Valve The aortic valve was not well visualized. There is mild calcification of the aortic valve. There is no aortic valve stenosis. There is no aortic valve regurgitation. Mitral Valve Normal mitral valve structure and function. There is trace mitral valve regurgitation. There is no mitral valve stenosis. Pulmonic Valve The pulmonic valve was not well visualized. Tricuspid Valve Likely normal tricuspid valve structure and function. There is trace tricuspid valve regurgitation. The right ventricular systolic pressure is normal. The right ventricular systolic pressure is 18 mmHg. Normal right atrial pressure. There is no evidence of pulmonary hypertension. Great Vessels All visible segments of the aorta are normal in size. The pulmonary artery was not well visualized. There is no dilatation of the ascending aorta measuring 3.10 cm. Venous The inferior vena cava is normal in size and collapses greater than 50% with inspiration. Pericardium/Pleural There is no evidence of pericardial effusion. Prior Study Comparison No prior study available for comparison. Measurements 2D Linear Measurements IVSd: 1.06 0.6-0.9/0.6-1.0 cm LVIDd: 4.44 3.9-5.3/4.2-5.9 cm LVIDd Index: 2.21 2.4-3.2/2.2-3.1 cm/m2 LVIDs: 2.83 2.0-3.6 cm LVPWd: 0.95 0.7-1.1 cm LA Diam: 3.00 2.7-3.8/3.0-4.0 cm LAIDs Index: 1.49 1.5-2.3 cm/m2 LV Mass: 187.39 67-162/88-224 g LV Mass Index: 93.23 43-95/49-115 g/m2 LVOT Diam: 1.90 3.0+(-)1.3 cm 2D Systolic Function EF 4C: 68.30 >55% EF 2C: 65.60 >55% EF BiP: 67.60 >55% Mitral Valve MV Pk E: 0.47 MV PK A: 0.89 MV Decel Time: 300.00 E/A: 0.50 E'Lateral: 4.57 E'Medial: 5.11 E/E' Med: 9.10 E/E' Lat: 10.20 PHT: 88.00 MVA PHT: 2.50 Decel [place]: 1.56 Aortic Valve AoV Pk Ernesto: 1.24 AoV Pk Grad: 6.00 CHRISTIANO: 2.16 LVOT LVOT Pk Ernesto: 1.01 LVOT Mn Ernesto: 0.77 LVOT VTI: 0.21 LVOT Pk Grad: 4.00 LVOT Mn Grad: 3.00 LVOT Diam: 1.90 LVOT Area: 2.84 Diastolic Function MV Pk E: 0.47 MV Pk A: 0.89 E/A: 0.50 E'Medial: 5.11 E/E' Med: 9.10 E' Laterial: 4.57 E/E' Lat: 10.20 Right Ventricle TAPSE (mm): 17.10 TVS' Ernesto: 10.70 Tricuspid Valve TR Pk Ernesto: 1.91 TR Pk Grad: 15.00 RA Press: 3.00 RVSP: 18.00 Great Vessels Aorta Sinus of Valsalva: 2.80 2.0-3.5 cm Ao Asc: 3.10 2.1-3.4 cm Ao Arch: 3.70 Pulmonary Valve PV Pk Ernesto: 0.81 Peak PV Grad: 3.00 Updated in Other Vendor System with Status of Final Juaquin Solo MD electronically signed on 03/27/2025 4:00:05 PM with status of Final
[2025-03-27] MEDS: Calcium + Vitamin D 250 MG TABLET PO ×2 (08:55→19:52)
--- NOTE | 2025-03-27 11:00 | MHC.CM.PN ---
CM assisted Patient with the completion of a HCP; she named her Sister/Lotus as her Agent.
[2025-03-27 13:18] LABS: Cannabinoid Screen Urine Not Detected (Not Detect)
--- NOTE | 2025-03-27 13:54 | P.PNIM_ITS ---
Subjective Subjective Date of Service: 03/28/25 Interval History: seems similar Review of Systems no new c/o Review of Systems: Yes all other systems are reviewed and are negative Physical Exam 2 Exam: Exam: Appearance: Alert.? Oriented X2. cvs: [id number], [id number] . res: clear to auscultation ,no rhonchii or wheezing abd: no rebound or guarding ,nt, bs present. ext pulses present , no cyanosis . neuro:move all ext. Vital Signs: Vital Signs: Last Vital Signs Temp 97.7 F 03/27/25 12:00 Pulse 64 03/27/25 12:00 Resp 18 03/27/25 12:00 BP 130/70 03/27/25 12:00 Pulse Ox 93 03/27/25 12:00 O2 Del Method Room Air 03/27/25 12:00 BMI result Body Mass Index 31.4 Objective Data Active Medications Acetaminophen (Acetaminophen 325 Mg Tablet) 650 mg PO Q6H PRN PRN Reason: Pain, Mild 1-3,fever,headache Albuterol Sulfate (Albuterol Sulfate 90 Mcg 8 Gm Inhaler) 2 puff INHALE Q4H PRN PRN Reason: Wheezing Albuterol/Ipratropium (Albuterol/Iprat 2.5/0.5mg 3 Ml Ampul.Neb) 3 ml INHALE Q4H PRN PRN Reason: Shortness of Breath/Wheezing Last Admin: 03/27/25 00:48 Dose: 3 ml Documented By: ANGELIQUE Aspirin (Aspirin 81 Mg Tab.Chew) 81 mg PO DAILY [facility] Last Admin: 03/27/25 08:54 Dose: 81 mg Documented By: CHRIS Atenolol (Atenolol 50 Mg Tablet) 50 mg PO DAILY [facility]; Protocol Last Admin: 03/27/25 08:54 Dose: 50 mg Documented By: CHRIS Atorvastatin Calcium (Atorvastatin Calcium 10 Mg Tablet) 10 mg PO BEDTIME [facility] Last Admin: 03/26/25 22:13 Dose: 10 mg Documented By: VALERIE Calcium Carbonate (Calcium Carbonate 750 Mg Tab.Chew) 750 mg PO Q4H PRN PRN Reason: Heartburn Calcium Carbonate/Cholecalciferol (Calcium + Vitamin D 250 Mg Tablet) 250 mg PO BID [facility] Last Admin: 03/27/25 08:55 Dose: 250 mg Documented By: CHRIS Fluticasone Propionate (Fluticasone Propionate Nasal 16 Gm [place]) 2 spray NOSTRIL-B DAILY [facility] Last Admin: 03/27/25 08:55 Dose: Not Given Documented By: CHRIS Non-Admin Reason: Med Not Available Comments: Called pharmacy for medication Latanoprost (Latanoprost 0.005 % Ophth [place] 2.5 Ml Drops) 1 drop EYE-BOTH BEDTIME [facility] Last Admin: 03/26/25 22:08 Dose: Not Given Documented By: VALERIE Non-Admin Reason: Med Not Available Levothyroxine Sodium (Levothyroxine Sodium 75 Mcg Tablet) 75 mcg PO DAILY@0600 [facility] Last Admin: 03/27/25 04:51 Dose: 75 mcg Documented By: VALERIE Loratadine (Loratadine 10 Mg Tablet) 10 mg PO DAILY PRN PRN Reason: Allergy Symptoms Magnesium Hydroxide (Milk Of Magnesia 30 Ml Oral.Susp) 30 ml PO DAILY PRN PRN Reason: Constipation Polyethylene Glycol (Polyethylene Glycol 3350 17 Gm Powd.Pack) 17 gm PO DAILY PRN PRN Reason: Constipation Senna (Sennosides 8.6 Mg Tablet) 17.2 mg PO BEDTIME [facility] Last Admin: 03/26/25 22:08 Dose: Not Given Documented By: VALERIE Non-Admin Reason: Patient Refused Sodium Chloride (0.9 % Sodium Chloride Flush 3 Ml Syringe) 3 ml IVFLUSH QSHIFT [facility] Last Admin: 03/27/25 08:56 Dose: 3 ml Documented By: CHRIS Vitamin D (Cholecalciferol (Vitamin D3) 25 Mcg Tablet) 50 mcg PO DAILY [facility] Last Admin: 03/27/25 08:54 Dose: 50 mcg Documented By: CHRIS Labs 03/26/25 03:45 03/26/25 03:45 Labs: Laboratory Results - last 24 hr 03/26/25 03/27/25 03:45 12:57 Estimat Average Glucose 105 Hemoglobin A1c % 5.3 Urine Opiates Screen Not Detected Ur Buprenorphine Scrn Not Detected Ur Oxycodone Screen Not Detected Urine Methadone Screen Not Detected Urine Fentanyl Screen Not Detected Ur Barbiturates Screen Not Detected Ur Phencyclidine Scrn Not Detected Ur Amphetamines Screen Not Detected U Benzodiazepines Scrn Not Detected Urine Cocaine Screen Not Detected U Marijuana (THC) Screen Not Detected Assessment and Plan (1) Encephalopathy: Status: Acute (2) HTN (hypertension): Status: Acute Plan 84-year-old female currently experiencing poor memory both short-term and long-term but 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 Patient being admitted for TIA rule out CVA. Patient has no family in the local area. Attempted to reach patient's sister Lotus wilson and in [place] via information found online but both numbers were not working. Patient does not have a cell phone and has no numbers for her neighbor as well named clear. patient states she does have a history of Scott's palsy but when she saw her face this evening on admission she states that the left-sided droopiness and paralysis is new. as. possible encephalopathy-unclear etiology CT of the head and CTA of the head and neck negative for acute findings MRI of the brain negative for acute/subacute infarct Echocardiogram ordered plan: seen by OT-mild cognitive impairment continue aspirin 81 mg daily Lipid panel :triglycerides 86, cholesterol 163, LDL 98 and HDL 48 AIC pending neuro rec: eeg negative and blood pressure control,antiplatelets. she is advised not to drive following [facility] regulations. Elevated troponin 56, than 56.9 Telemetry Echo:1. Normal LV ejection fraction of 65-70% with impaired relaxation filling pattern 2. Mild calcific aortic valve changes noted with normal cardiac valvular Dopplers 3. Normal RV systolic pressure 4. No gross pericardial effusion Cardiology consulted- trop flat,EKG negative for any ischemic changes, echo as abdulkadir ,orthostatic signs negative Hypertension:started back atenolol ,if blood pressure still not controlled we need to add blood pressure medication. 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 Patient currently asymptomatic No history of smoking Hypothyroidism Continue levothyroxine TSH 3.29 Macular degeneration/glaucoma Continue eyedrops once med rec completed DVT prophylaxis: Lovenox dispo: psych eval for capacity and safe discharge planning because she was found wondering and has congitive impairment . Quality Stroke Does the patient have a stroke diagnosis?: No Reason for No Anti-thrombotic by Day Two: N/A - Med Ordered VTE Prior VTE?: No VTE Risk Level:: Medical - moderate - high VTE Device Contraindication: N/A - Device Ordered VTE Drug Contraindication: N/A - Med Ordered
--- NOTE | 2025-03-27 17:13 | PM.PSYCN ---
History of Present Illness Date of Service: 03/28/2025 Chief Complaint: TIA rule out CVA Reason for Consult: concern in terms of her ability to care for self. Requesting physician: Zoila Moya Discussed with referring provider: Yes Sources of Information: patient interviewed, chart reviewed and crisis/core team assessment reviewed HPI Narrative: Ms. Freitas is an 84 year-old woman who was brought via [facility] after she stopped at convenience store and appeared confused. Psychiatry has been asked to assess pt's cognitive given concerns in terms of her ability to care for herself. Pt seen in the room. She reports she drives carefully. She reports she went to a store and was confused and sent here. She tells this engineering technical writer she has never seen her face like this despite pt reporting that she has a hx of Scott's palsy. She tells this engineering technical writer she is not sure why her face is like this. She reports she has not seen any doctors here. She is able to tell she is in a hospital but does not know the city or name of hospital. She knows the month and the year but not date. She does not know how long she has been here. She reports living alone, reports managing her medications and coordinating appointments. She reports she has a sister who lives an hour or so from here but she can't remember where her sister lives. Pt had MOCA completed scored 18/30 impairments in executive function, visuospatial, recall, language fluency. [facility] Medical History Scott's palsy Glaucoma Macular degeneration Asthma Diagnostics Vital Signs (24Hr): Vital Signs - 24 hr 03/26/25 21:26 03/26/25 23:21 03/27/25 00:00 Temperature 99.6 F 99.1 F Pulse Rate 72 67 Pulse Rate [Monitor] 72 Respiratory Rate 18 17 Blood Pressure 185/96 H 198/99 H Pulse Oximetry 94 95 Oxygen Delivery Method Room Air Room Air 03/27/25 00:49 03/27/25 03:25 03/27/25 03:34 Temperature 98.2 F Pulse Rate 69 66 74 Pulse Rate [Monitor] Respiratory Rate 18 16 Blood Pressure 193/91 H 184/94 H Pulse Oximetry 95 Oxygen Delivery Method Room Air 03/27/25 03:37 03/27/25 07:34 03/27/25 08:54 Temperature 98.6 F Pulse Rate 81 75 80 Pulse Rate [Monitor] Respiratory Rate 18 Blood Pressure 186/91 H 172/84 H 170/84 H Pulse Oximetry 94 Oxygen Delivery Method Room Air 03/27/25 09:46 03/27/25 12:00 03/27/25 14:00 Temperature 97.7 F Pulse Rate 64 66 Pulse Rate [Monitor] 77 Respiratory Rate 18 Blood Pressure 130/70 143/70 H Pulse Oximetry 93 Oxygen Delivery Method Room Air 03/27/25 14:41 03/27/25 14:42 03/27/25 15:53 Temperature Pulse Rate 69 77 Pulse Rate [Monitor] 65 Respiratory Rate Blood Pressure 143/74 H 151/83 H Pulse Oximetry Oxygen Delivery Method BMI result Body Mass Index 31.4 Labs 03/26/25 03:45 03/26/25 03:45 Labs: Laboratory Results - last 48 hr 03/25/25 03/25/25 03/25/25 17:37 17:41 17:48 WBC 7.6 RBC 5.04 Hgb 15.8 Hct 48.6 H MCV 96.4 MCH 31.3 MCHC 32.5 RDW 13.3 Plt Count 201 MPV 10.0 Immature Gran % (Auto) 0.7 H Neut % (Auto) 55.3 Lymph % (Auto) 28.0 [place] % (Auto) 8.0 Eos % (Auto) 7.1 H Baso % (Auto) 0.9 Lymph # (Auto) 2.1 [place] # (Auto) 0.6 Eos # (Auto) 0.5 H Baso # (Auto) 0.1 Abs Immat Gran (auto) 0.05 H Absolute Neuts (auto) 4.2 Absolute Nucleated RBC 0.000 Nucleated RBC % (auto) 0.0 PT 11.9 Whole Blood PT 12.1 INR 1.0 Whole Blood INR 1.0 APTT 28.9 Sodium 141 Potassium 4.3 Chloride 107 Carbon Dioxide 24 Anion Gap 14 BUN 27 H Creatinine 0.98 Estim Creat Clear Calc 50.0 Estimated GFR 54 POC Glucose 98 Random Glucose 94 Estimat Average Glucose Hemoglobin A1c % Calcium 9.8 Magnesium 2.1 Total Bilirubin AST ALT Alkaline Phosphatase Troponin I High Sens 56.0 H* NT-Pro-B Natriuret Pep Total Protein Albumin Triglycerides 86 Cholesterol 163 LDL Cholesterol, Calc 98 HDL Cholesterol 48 TSH 3.29 Urine Opiates Screen Ur Buprenorphine Scrn Ur Oxycodone Screen Urine Methadone Screen Urine Fentanyl Screen Ur Barbiturates Screen Ur Phencyclidine Scrn Ur Amphetamines Screen U Benzodiazepines Scrn Urine Cocaine Screen U Marijuana (THC) Screen Ethyl Alcohol < 10 03/25/25 03/26/25 03/27/25 19:12 03:45 12:57 WBC 8.6 RBC 4.62 Hgb 14.5 Hct 43.9 MCV 95.0 MCH 31.4 MCHC 33.0 RDW 13.3 Plt Count 194 MPV 9.9 Immature Gran % (Auto) Neut % (Auto) Lymph % (Auto) [place] % (Auto) Eos % (Auto) Baso % (Auto) Lymph # (Auto) [place] # (Auto) Eos # (Auto) Baso # (Auto) Abs Immat Gran (auto) Absolute Neuts (auto) Absolute Nucleated RBC 0.000 Nucleated RBC % (auto) 0.0 PT Whole Blood PT INR Whole Blood INR APTT Sodium 139 Potassium 4.0 Chloride 109 H Carbon Dioxide 20 L Anion Gap 14 BUN 23 H Creatinine 0.82 Estim Creat Clear Calc 59.8 Estimated GFR > 60 POC Glucose Random Glucose 88 Estimat Average Glucose 105 Hemoglobin A1c % 5.3 Calcium 9.2 D Magnesium Total Bilirubin 0.8 AST 17 ALT 10 Alkaline Phosphatase 85 Troponin I High Sens 56.9 H* NT-Pro-B Natriuret Pep 96.3 Total Protein 6.8 Albumin 4.0 Triglycerides Cholesterol LDL Cholesterol, Calc HDL Cholesterol TSH Urine Opiates Screen Not Detected Ur Buprenorphine Scrn Not Detected Ur Oxycodone Screen Not Detected Urine Methadone Screen Not Detected Urine Fentanyl Screen Not Detected Ur Barbiturates Screen Not Detected Ur Phencyclidine Scrn Not Detected Ur Amphetamines Screen Not Detected U Benzodiazepines Scrn Not Detected Urine Cocaine Screen Not Detected U Marijuana (THC) Screen Not Detected Ethyl Alcohol Mental Status Exam Mental Status Exam Narrative: Apperance: wearing hospital gown, fair hygiene, facial drop noted, in NAD Behavior: cooperative Psychomotor: no agitation or retardation noted Speech: clear, normal rate/rhythm/volume, spontaneous TC: linear TC: hoping her face looks better soon Mood: good Affect: congruent SI: none HI: none VH/AH: none Delusions: none Insight/judgment: impaired x 2. Memory/cog: alert, oriented to hospital, month and year, not to city, nor situation. MOCA 18/30. However, noticed significant difficulty retaining information from recent days. Medications Medications Current Medications Acetaminophen (Acetaminophen 325 Mg Tablet) 650 mg PO Q6H PRN PRN Reason: Pain, Mild 1-3,fever,headache Albuterol Sulfate (Albuterol Sulfate 90 Mcg 8 Gm Inhaler) 2 puff INHALE Q4H PRN PRN Reason: Wheezing Albuterol/Ipratropium (Albuterol/Iprat 2.5/0.5mg 3 Ml Ampul.Neb) 3 ml INHALE Q4H PRN PRN Reason: Shortness of Breath/Wheezing Last Admin: 03/27/25 00:48 Dose: 3 ml Aspirin (Aspirin 81 Mg Tab.Chew) 81 mg PO DAILY [facility] Last Admin: 03/27/25 08:54 Dose: 81 mg Atenolol (Atenolol 50 Mg Tablet) 50 mg PO DAILY [facility]; Protocol Last Admin: 03/27/25 08:54 Dose: 50 mg Atorvastatin Calcium (Atorvastatin Calcium 10 Mg Tablet) 10 mg PO BEDTIME [facility] Last Admin: 03/26/25 22:13 Dose: 10 mg Calcium Carbonate (Calcium Carbonate 750 Mg Tab.Chew) 750 mg PO Q4H PRN PRN Reason: Heartburn Calcium Carbonate/Cholecalciferol (Calcium + Vitamin D 250 Mg Tablet) 250 mg PO BID [facility] Last Admin: 03/27/25 08:55 Dose: 250 mg Fluticasone Propionate (Fluticasone Propionate Nasal 16 Gm [place]) 2 spray NOSTRIL-B DAILY [facility] Last Admin: 03/27/25 08:55 Dose: Not Given Latanoprost (Latanoprost 0.005 % Ophth [place]aya 2.5 Ml Drops) 1 drop EYE-BOTH BEDTIME [facility] Last Admin: 03/26/25 22:08 Dose: Not Given Levothyroxine Sodium (Levothyroxine Sodium 75 Mcg Tablet) 75 mcg PO DAILY@0600 [facility] Last Admin: 03/27/25 04:51 Dose: 75 mcg Loratadine (Loratadine 10 Mg Tablet) 10 mg PO DAILY PRN PRN Reason: Allergy Symptoms Magnesium Hydroxide (Milk Of Magnesia 30 Ml Oral.Susp) 30 ml PO DAILY PRN PRN Reason: Constipation Polyethylene Glycol (Polyethylene Glycol 3350 17 Gm Powd.Pack) 17 gm PO DAILY PRN PRN Reason: Constipation Senna (Sennosides 8.6 Mg Tablet) 17.2 mg PO BEDTIME [facility] Last Admin: 03/26/25 22:08 Dose: Not Given Sodium Chloride (0.9 % Sodium Chloride Flush 3 Ml Syringe) 3 ml IVFLUSH QSHIFT [facility] Last Admin: 03/27/25 16:57 Dose: Not Given Vitamin D (Cholecalciferol (Vitamin D3) 25 Mcg Tablet) 50 mcg PO DAILY [facility] Last Admin: 03/27/25 08:54 Dose: 50 mcg Allergies Allergies Allergy/AdvReac Type Severity Reaction Status Date / Time No Known Allergies Allergy Verified 03/25/25 17:44 Assessment & Plan Assessment & Plan (1) Major neurocognitive disorder: Status: Acute Code(s): F03.90 - Unspecified dementia, unspecified severity, without behavioral disturbance, psychotic disturbance, mood disturbance, and anxiety Plan Mrs. Freitas presents with impairments in executive function, visuo spatial, ability to retain new information. Collateral information is limited as to her living situation as she lives alone. However, pt should not be driving without further evaluation from DMV, form should be sent to alert of further evaluation before driving. Also, concern in terms of her ability to manage her own medications, finances and coordinating care. She does have capacity to appoint HCP, which she did and is her sister. 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 ACL may provide more guidance as to supports she may need in the community to be safe. Ordered ACL. Total time managing care of this patient today ____ minutes.
[2025-03-27] MEDS: Latanoprost 0.005 % Ophth Sol 2.5 ML DROPS 1 DROP EYE-BOTH (19:52)
[2025-03-28] VITALS (8 sets, daily range): BP systolic 119–153; BP diastolic 62–81; PULSE 57–78; RESP 17–18; TEMP 36.3–37.1; O2SAT 92–96
[2025-03-28] MEDS: Calcium + Vitamin D 250 MG TABLET PO ×2 (08:29→22:35)
[2025-03-28] MEDS: 0.9 % Sodium Chloride Flush 3 ML SYRINGE IVFLUSH (08:30)
--- NOTE | 2025-03-28 08:37 | HO.PM.IMPN ---
Subjective Subjective Date of Service: 03/28/25 Interval History: cognitive impairment Review of Systems no new c/o Review of Systems: Yes all other systems are reviewed and are negative Physical Exam Exam: Exam: Appearance: Alert.? Oriented X2.forgetful cvs: rrr, [id number] . res: clear to auscultation ,no rhonchii or wheezing abd: no rebound or guarding ,nt, bs present. ext pulses present , no cyanosis . neuro:move all ext. Vital Signs: Vital Signs: Last Vital Signs Temp 98.2 F 03/28/25 07:40 Pulse 63 03/28/25 07:40 Resp 18 03/28/25 07:40 BP 152/78 H 03/28/25 07:40 Pulse Ox 96 03/28/25 07:40 O2 Del Method Room Air 03/28/25 07:40 BMI result Body Mass Index 31.4 Objective Data Active Medications Acetaminophen (Acetaminophen 325 Mg Tablet) 650 mg PO Q6H PRN PRN Reason: Pain, Mild 1-3,fever,headache Albuterol Sulfate (Albuterol Sulfate 90 Mcg 8 Gm Inhaler) 2 puff INHALE Q4H PRN PRN Reason: Wheezing Albuterol/Ipratropium (Albuterol/Iprat 2.5/0.5mg 3 Ml Ampul.Neb) 3 ml INHALE Q4H PRN PRN Reason: Shortness of Breath/Wheezing Last Admin: 03/27/25 00:48 Dose: 3 ml Documented By: ANGELIQUE Aspirin (Aspirin 81 Mg Tab.Chew) 81 mg PO DAILY [facility] Last Admin: 03/28/25 08:29 Dose: 81 mg Documented By: CHRIS Atenolol (Atenolol 50 Mg Tablet) 50 mg PO DAILY [facility]; Protocol Last Admin: 03/28/25 08:29 Dose: 50 mg Documented By: CHRIS Atorvastatin Calcium (Atorvastatin Calcium 10 Mg Tablet) 10 mg PO BEDTIME [facility] Last Admin: 03/27/25 19:52 Dose: 10 mg Documented By: BOSTON Calcium Carbonate (Calcium Carbonate 750 Mg Tab.Chew) 750 mg PO Q4H PRN PRN Reason: Heartburn Calcium Carbonate/Cholecalciferol (Calcium + Vitamin D 250 Mg Tablet) 250 mg PO BID [facility] Last Admin: 03/28/25 08:29 Dose: 250 mg Documented By: CHRIS Fluticasone Propionate (Fluticasone Propionate Nasal 16 Gm [place]) 2 spray NOSTRIL-B DAILY [facility] Last Admin: 03/27/25 08:55 Dose: Not Given Documented By: CHRIS Non-Admin Reason: Med Not Available Comments: Called pharmacy for medication Latanoprost (Latanoprost 0.005 % Ophth [place] 2.5 Ml Drops) 1 drop EYE-BOTH BEDTIME [facility] Last Admin: 03/27/25 19:52 Dose: 1 drop Documented By: BOSTON Levothyroxine Sodium (Levothyroxine Sodium 75 Mcg Tablet) 75 mcg PO DAILY@0600 [facility] Last Admin: 03/28/25 04:04 Dose: 75 mcg Documented By: BOSTON Loratadine (Loratadine 10 Mg Tablet) 10 mg PO DAILY PRN PRN Reason: Allergy Symptoms Magnesium Hydroxide (Milk Of Magnesia 30 Ml Oral.Susp) 30 ml PO DAILY PRN PRN Reason: Constipation Polyethylene Glycol (Polyethylene Glycol 3350 17 Gm Powd.Pack) 17 gm PO DAILY PRN PRN Reason: Constipation Senna (Sennosides 8.6 Mg Tablet) 17.2 mg PO BEDTIME [facility] Last Admin: 03/27/25 19:50 Dose: Not Given Documented By: BOSTON Non-Admin Reason: Patient Refused Sodium Chloride (0.9 % Sodium Chloride Flush 3 Ml Syringe) 3 ml IVFLUSH QSHIFT [facility] Last Admin: 03/28/25 08:30 Dose: 3 ml Documented By: CRHIS Vitamin D (Cholecalciferol (Vitamin D3) 25 Mcg Tablet) 50 mcg PO DAILY [facility] Last Admin: 03/28/25 08:29 Dose: 50 mcg Documented By: CHRIS Labs 03/26/25 03:45 03/26/25 03:45 Labs: Laboratory Results - last 24 hr 03/27/25 12:57 Urine Opiates Screen Not Detected Ur Buprenorphine Scrn Not Detected Ur Oxycodone Screen Not Detected Urine Methadone Screen Not Detected Urine Fentanyl Screen Not Detected Ur Barbiturates Screen Not Detected Ur Phencyclidine Scrn Not Detected Ur Amphetamines Screen Not Detected U Benzodiazepines Scrn Not Detected Urine Cocaine Screen Not Detected U Marijuana (THC) Screen Not Detected Assessment and Plan (1) Encephalopathy: Status: Acute (2) HTN (hypertension): Status: Acute Plan 84-year-old female currently experiencing poor memory both short-term and long-term but 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 Patient being admitted for TIA rule out CVA. Patient has no family in the local area. Attempted to reach patient's sister Lotus wilson and in [place] via information found online but both numbers were not working. Patient does not have a cell phone and has no numbers for her neighbor as well named clear. patient states she does have a history of Scott's palsy but when she saw her face this evening on admission she states that the left-sided droopiness and paralysis is new. as. possible encephalopathy-unclear etiology CT of the head and CTA of the head and neck negative for acute findings MRI of the brain negative for acute/subacute infarct Echocardiogram ordered plan: seen by OT-mild cognitive impairment continue aspirin 81 mg daily Lipid panel :triglycerides 86, cholesterol 163, LDL 98 and HDL 48 AIC pending neuro rec: eeg negative and blood pressure control,antiplatelets. she is advised not to drive following [facility] regulations. Elevated troponin 56, than 56.9 Telemetry Echo:1. Normal LV ejection fraction of 65-70% with impaired relaxation filling pattern 2. Mild calcific aortic valve changes noted with normal cardiac valvular Dopplers 3. Normal RV systolic pressure 4. No gross pericardial effusion Cardiology consulted- trop flat,EKG negative for any ischemic changes, echo as abdulkadir ,orthostatic signs negative Hypertension:started back atenolol ,if blood pressure still not controlled we need to add blood pressure medication. 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 Patient currently asymptomatic No history of smoking Hypothyroidism Continue levothyroxine TSH 3.29 Macular degeneration/glaucoma Continue eyedrops once med rec completed. cognitive impairment : seen by psych: Mrs. Freitas presents with impairments in executive function, visuo spatial, ability to retain new information. Collateral information is limited as to her living situation as she lives alone. However, pt should not be driving without further evaluation from DMV, form should be sent to alert of further evaluation before driving. Also, concern in terms of her ability to manage her own medications, finances and coordinating care. She does have capacity to appoint HCP, which she did and is her sister. 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 ACL may provide more guidance as to supports she may need in the community to be safe. Ordered ACL DVT prophylaxis: Lovenox dispo: psych eval for capacity and safe discharge planning because she was found wondering and has congitive impairment . Quality Stroke Does the patient have a stroke diagnosis?: No Reason for No Anti-thrombotic by Day Two: N/A - Med Ordered VTE Prior VTE?: No VTE Risk Level:: Medical - moderate - high VTE Device Contraindication: N/A - Device Ordered VTE Drug Contraindication: N/A - Med Ordered
--- NOTE | 2025-03-28 14:25 | MHC.CM.PN ---
CM spoke to pt. today, she had a friend, her neighbor visiting. Pt. wants to go get her car and go home. She is aware that her memory is not good. her neighbor said that she helps her with her bills and mail, and she talks to her everyday. The neighbor said she is not doing well living by herself, she won't take her medications, and home delivered meals, but only a few times a week. FUNMILAYO asked pt. if she would consider [facility], there is one that is near [place], [place]. Pt. said she would like to find out more information about it. CM will contact [facility] on Sunday to inquire how they may assist with adding services at home for this pt.
--- NOTE | 2025-03-28 15:00 | MHC.CM.PN ---
CM received a message from Patient's step dtr, Ann Marie [phone]. she lives on the [facility] and does not have a car, so she cannot come here to assist pt. she gave CM a # for pt.'s step son: Jono Songr [phone], he lives in [place]. They are both concerned about pt. but not local or able to come here to assist her.
[2025-03-28] MEDS: Latanoprost 0.005 % Ophth Sol 2.5 ML DROPS 1 DROP EYE-BOTH (22:35)
[2025-03-29] VITALS (8 sets, daily range): BP systolic 105–143; BP diastolic 59–81; PULSE 61–69; RESP 17–19; TEMP 36.4–37.1; O2SAT 91–98
--- NOTE | 2025-03-29 05:27 | PC.NURSE ---
took synthroid whole with water without dysphagia. standby assist back to bed with walker. fall prx in place, airloss device in place, call hart in reach with patient demonstrating proper use to nurse.
[2025-03-29] MEDS: Calcium + Vitamin D 250 MG TABLET PO ×2 (09:15→21:10)
[2025-03-29] MEDS: 0.9 % Sodium Chloride Flush 3 ML SYRINGE IVFLUSH (09:19)
--- NOTE | 2025-03-29 13:36 | HO.PM.IMPN ---
Subjective Subjective Date of Service: 03/29/25 Interval History: cognitive impairment Review of Systems Review of Systems: Yes all other systems are reviewed and are negative Physical Exam Exam: Exam: Appearance: Alert.? Oriented X2.forgetful cvs: rrr, [id number] . res: clear to auscultation ,no rhonchii or wheezing abd: no rebound or guarding ,nt, bs present. ext pulses present , no cyanosis . neuro:move all ext. Vital Signs: Vital Signs: Last Vital Signs Temp 97.5 F 03/29/25 11:36 Pulse 69 03/29/25 11:36 Resp 18 03/29/25 11:36 BP 105/59 L 03/29/25 11:36 Pulse Ox 91 L 03/29/25 11:36 O2 Del Method Room Air 03/29/25 11:36 BMI result Body Mass Index 31.4 Objective Data Active Medications Acetaminophen (Acetaminophen 325 Mg Tablet) 650 mg PO Q6H PRN PRN Reason: Pain, Mild 1-3,fever,headache Albuterol Sulfate (Albuterol Sulfate 90 Mcg 8 Gm Inhaler) 2 puff INHALE Q4H PRN PRN Reason: Wheezing Albuterol/Ipratropium (Albuterol/Iprat 2.5/0.5mg 3 Ml Ampul.Neb) 3 ml INHALE Q4H PRN PRN Reason: Shortness of Breath/Wheezing Last Admin: 03/27/25 00:48 Dose: 3 ml Documented By: ANGELIQUE Aspirin (Aspirin 81 Mg Tab.Chew) 81 mg PO DAILY [facility] Last Admin: 03/29/25 09:16 Dose: 81 mg Documented By: LOGAN Atenolol (Atenolol 50 Mg Tablet) 50 mg PO DAILY [facility]; Protocol Last Admin: 03/29/25 09:15 Dose: 50 mg Documented By: LOGAN Atorvastatin Calcium (Atorvastatin Calcium 10 Mg Tablet) 10 mg PO BEDTIME [facility] Last Admin: 03/28/25 22:35 Dose: 10 mg Documented By: SPENSER Calcium Carbonate (Calcium Carbonate 750 Mg Tab.Chew) 750 mg PO Q4H PRN PRN Reason: Heartburn Calcium Carbonate/Cholecalciferol (Calcium + Vitamin D 250 Mg Tablet) 250 mg PO BID [facility] Last Admin: 03/29/25 09:15 Dose: 250 mg Documented By: LOGAN Fluticasone Propionate (Fluticasone Propionate Nasal 16 Gm [place]) 2 spray NOSTRIL-B DAILY [facility] Last Admin: 03/29/25 09:08 Dose: 2 spray Documented By: LOGAN Latanoprost (Latanoprost 0.005 % Ophth [place] 2.5 Ml Drops) 1 drop EYE-BOTH BEDTIME [facility] Last Admin: 03/28/25 22:35 Dose: 1 drop Documented By: SPENSER Levothyroxine Sodium (Levothyroxine Sodium 75 Mcg Tablet) 75 mcg PO DAILY@0600 [facility] Last Admin: 03/29/25 05:14 Dose: 75 mcg Documented By: SPENSER Loratadine (Loratadine 10 Mg Tablet) 10 mg PO DAILY PRN PRN Reason: Allergy Symptoms Magnesium Hydroxide (Milk Of Magnesia 30 Ml Oral.Susp) 30 ml PO DAILY PRN PRN Reason: Constipation Polyethylene Glycol (Polyethylene Glycol 3350 17 Gm Powd.Pack) 17 gm PO DAILY PRN PRN Reason: Constipation Senna (Sennosides 8.6 Mg Tablet) 17.2 mg PO BEDTIME [facility] Last Admin: 03/28/25 22:35 Dose: 17.2 mg Documented By: SPENSER Sodium Chloride (0.9 % Sodium Chloride Flush 3 Ml Syringe) 3 ml IVFLUSH QSHIFT [facility] Last Admin: 03/29/25 09:19 Dose: 3 ml Documented By: LOGAN Vitamin D (Cholecalciferol (Vitamin D3) 25 Mcg Tablet) 50 mcg PO DAILY [facility] Last Admin: 03/29/25 09:16 Dose: 50 mcg Documented By: LOGAN Labs 03/26/25 03:45 03/26/25 03:45 Assessment and Plan (1) Encephalopathy: Status: Acute (2) HTN (hypertension): Status: Acute Plan 84-year-old female currently experiencing poor memory both short-term and long-term but 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 Patient being admitted for TIA rule out CVA. Patient has no family in the local area. Attempted to reach patient's sister Lotus wilson and in [place] via information found online but both numbers were not working. Patient does not have a cell phone and has no numbers for her neighbor as well named clear. patient states she does have a history of Scott's palsy but when she saw her face this evening on admission she states that the left-sided droopiness and paralysis is new. as. possible encephalopathy-unclear etiology CT of the head and CTA of the head and neck negative for acute findings MRI of the brain negative for acute/subacute infarct Echocardiogram ordered plan: seen by OT-mild cognitive impairment continue aspirin 81 mg daily Lipid panel :triglycerides 86, cholesterol 163, LDL 98 and HDL 48 AIC 5.3 neuro rec: eeg negative and blood pressure control,antiplatelets. she is advised not to drive following [facility] regulations. Elevated troponin 56, than 56.9 Telemetry Echo:1. Normal LV ejection fraction of 65-70% with impaired relaxation filling pattern 2. Mild calcific aortic valve changes noted with normal cardiac valvular Dopplers 3. Normal RV systolic pressure 4. No gross pericardial effusion Cardiology consulted- trop flat,EKG negative for any ischemic changes, echo as abdulkadir ,orthostatic signs negative Hypertension:started back atenolol ,if blood pressure still not controlled we need to add blood pressure medication. 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 Patient currently asymptomatic No history of smoking Hypothyroidism Continue levothyroxine TSH 3.29 Macular degeneration/glaucoma Continue eyedrops once med rec completed. cognitive impairment : seen by psych: Mrs. Freitas presents with impairments in executive function, visuo spatial, ability to retain new information. Collateral information is limited as to her living situation as she lives alone. However, pt should not be driving without further evaluation from DMV, form should be sent to alert of further evaluation before driving. Also, concern in terms of her ability to manage her own medications, finances and coordinating care. She does have capacity to appoint HCP, which she did and is her sister. 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 ACL may provide more guidance as to supports she may need in the community to be safe. Ordered ACL DVT prophylaxis: Lovenox dispo: psych eval for capacity and safe discharge planning because she was found wondering and has congitive impairment . Quality Stroke Does the patient have a stroke diagnosis?: No Reason for No Anti-thrombotic by Day Two: N/A - Med Ordered VTE Prior VTE?: No VTE Risk Level:: Medical - moderate - high VTE Device Contraindication: N/A - Device Ordered VTE Drug Contraindication: N/A - Med Ordered
[2025-03-29] MEDS: Latanoprost 0.005 % Ophth Sol 2.5 ML DROPS 1 DROP EYE-BOTH (21:10)
[2025-03-30 03:18] VITALS: BP 131/78; PULSE 69; RESP 17; TEMP 36.3; O2SAT 93
--- NOTE | 2025-03-30 03:18 | PC.NURSE ---
pt used call hart for first time but then immediately activated chair alarm, standby assist to bathroom, back in bed with chair alarm in place, call hart in reach
[2025-03-30 07:15] VITALS: BP 140/75; PULSE 61; RESP 18; TEMP 36.8; O2SAT 94
[2025-03-30 08:40] VITALS: BP 140/75; PULSE 65
[2025-03-30] MEDS: Calcium + Vitamin D 250 MG TABLET PO ×2 (08:40→21:09)
[2025-03-30] MEDS: 0.9 % Sodium Chloride Flush 3 ML SYRINGE IVFLUSH ×3 (08:43→21:17)
[2025-03-30 11:03] VITALS: BP 121/62; PULSE 57; RESP 18; TEMP 36.7; O2SAT 92
--- NOTE | 2025-03-30 11:10 | MHC.CM.PN ---
Addendum entered by Betsy Castellano 03/30/25 14:54: anticipates dc to home tomorrow;[facility] set up for 03/31/2025 at 11 AM. Elder Protective Services referral has been made r/t impaired cognition and MOWs were asked to be resumed via [place] [facility]. [facility] has accepted Patient. IMM addressed with Patient who is very pleased to be going home. Original Note: Still need Psych to determine capacity,per PT & OT, no PT/OT indicated/ Patient is functionally independent. CM will follow.
--- NOTE | 2025-03-30 13:35 | W.MHC.F2F ---
Service Date Service Date: 03/30/25 Encounter Date of encounter: 03/30/25 Encounter: Cognitive impairment Reasons for Services Signs and symptoms assessed: Monitor any signs of confusion further, any new symptoms chest pain or shortness of breath Reason for senior living: medication management, medication treatment, teach disease management and other (Cognitive impairment, lives alone) Reason for physical therapy: home safety and mobility, therapeutic exercises, restore joint function, gait/transfer training, assess need for DME, ADL training, energy conservation and other MD Overseeing Care: Alona Yanez Homebound: Leaving the home is medically contraindicated at this time without the asist of a device and/or another person due th the listed conditions above and below. Reason homebound: weakness related to hospital stay Homebound supporting statement: Patient is generalised weak post hospitlisation, also has cognitive impairment and need help with going to appointments , medical management as well as PT. Certification: Based on the above findings, I certify that this patient is confined to the home and needs intermittent senior living care, physical therapy and/or speech therapy, or continues to need occupational therapy. The patient is under my care, and I have initiated the establishment of the plan of care. The patient will be followed by a physician who will periodically review the plan of care. Time Spent With Patient Time: Total time managing care of this patient today ____ minutes.
--- NOTE | 2025-03-30 13:37 | P.DS_ITS ---
DS: Providers Provider Date of admission: 03/25/25 19:42 Date of discharge: 03/30/25 Primary care physician: Alona Yanez MD Consults: 03/25/25 19:45 Consult to Neurology Routine Consulting Provider: [facility] Reason for consultation: CVA suspected 03/25/25 22:13 Consult to Cardiology Routine Consulting Provider: [facility] Reason for consultation: elevated troponins Has provider been notified: No 03/27/25 10:05 Consult to Psychiatry Routine Consulting Provider: [facility] Reason for consultation: Capacity eval Has provider been notified: No Attending physician on discharge: Zoila Lewis Discharging clinician: Zoila Lewis DS: Diagnosis Discharge Diagnosis (1) Encephalopathy: Status: Acute (2) HTN (hypertension): Status: Acute DS: Summary Hospital Course Hospital Course: HPi:84-year-old female currently experiencing poor memory both short- term and long-term but 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 Patient initially had aphasia per EMS and short-term memory loss. Patient's left side of the face was drooped with paralysis. Patient stated to the ED provider that she has baseline Scott's palsy which could explain this finding but this automatic typewriter inspector used phone to allow patient to see her face currently and she states that those changes on the left side are new. Patient had no lower extremity or upper extremity weakness, no drift. Patient denies any headache, nausea, vomiting, chest pain or shortness of breath. Patient only follows with her PCP and has no other specialists including substance abuse prevention coordinator. Patient also states that she has no family in the local area and has no children. Patient is familiar with her neighbor Hillary, but patient does not carry a cell phone so she has no phone numbers available. Patient states her sister Lotus wilson and lives in [place] and requested that this automatic typewriter inspector attempt to reach out to her. Patient's sister is listed online the phone numbers listed are not working. Patient denies history of stroke or seizure. Patient denies history of smoking, alcohol use, marijuana use or illicit drug use. Patient denies history of UTI more diabetes. LKW was approximately 4PM after pt awakened from a nap. Patient denies unexplained weight loss or gain. Patient is left-hand dominant. Head CT was negative for any acute findings. Head and neck CTA noted atherosclerotic vascular disease with no hemodynamically significant stenosis. CT Angiography of the brain demonstrates no intracranial large vessel occlusion. Patient currently has no leukocytosis or anemia. Electrolytes and renal function are stable. Blood glucose 94. Troponins trending 56 and then 56.9. Triglycerides 86, cholesterol 163, LDL 98 and HDL 48. Patient is being admitted for TIA rule out CVA. hospital course: Patient was admitted initially for encephalopathy unclear etiology workup including CT head and MRI negative, echo seems also fine. EEG negative. Patient seen by Neurology -added aspirin and recommended better blood pressure control. In addition patient was seen by OT and Psychiatry patient has cognitive impairment-currently patient's plan is going to go home with VNA and elderly protective Services. she is advised not to drive following [facility] regulations. dmv form completed by psych. Patient had mild elevated troponin, echo seems fine, orthostatic negative, seen by Cardiology: No further cardiac workup since patient is asymptomatic. plan: continue asa ,statin home with VNA and elderly protective Services.she is advised not to drive following [facility] regulations. Total assessment and plan coordination time spent 40 minutes. Time Attestation Total time managing care of this patient today: 40 mintues. Discharge Coordination Time (in mins): 40 min Quality: Safe Use of Opioids Does Pt have an Active Cancer Diagnosis on the Problem List?: No Quality: Stroke Does the patient have a stroke diagnosis?: No Physical Exam Exam: Exam: Appearance: Alert.? Oriented X2.forgetful cvs: rrr, [id number] . res: clear to auscultation ,no rhonchii or wheezing abd: no rebound or guarding ,nt, bs present. ext pulses present , no cyanosis . neuro:move all ext. Vital Signs: Vital Signs: Last Vital Signs Temp 98.1 F 03/30/25 11:03 Pulse 57 03/30/25 11:03 Resp 18 03/30/25 11:03 BP 121/62 03/30/25 11:03 Pulse Ox 92 03/30/25 11:03 O2 Del Method Room Air 03/30/25 11:03 BMI result Body Mass Index 31.4 DS: Data Additional Comments Additional comments: mri: No acute/subacute infarct. cta: 1. CT angiography neck demonstrates atherosclerotic vascular disease with no hemodynamically significant stenosis. 2. CT angiography brain demonstrates no intracranial large vessel occlusion. echo: conclusions: - 1. Normal LV ejection fraction of 65-70% with impaired relaxation filling pattern 2. Mild calcific aortic valve changes noted with normal cardiac valvular Dopplers 3. Normal RV systolic pressure 4. No gross pericardial effusion Findings Procedure Information Contrast agent, definity, is being given per protocol without apparent complications. Left Ventricle Normal left ventricular size, thickness, and systolic function. The visually estimated ejection fraction is between 65-70%. Spectral Doppler is indicative of an impaired relaxation filling pattern. E/E prime ratio is between 8 and 15 consistent with indeterminate filling pressures. Right Ventricle Normal right ventricular cavity size and systolic function. Atria The left atrium is likely dilated. There is lipomatous hypertrophy of the interatrial septum. There is no evidence of interatrial shunt. The right atrium is normal in size. Aortic Valve The aortic valve was not well visualized. There is mild calcification of the aortic valve. There is no aortic valve stenosis. There is no aortic valve regurgitation. Mitral Valve Normal mitral valve structure and function. There is trace mitral valve regurgitation. There is no mitral valve stenosis. Pulmonic Valve The pulmonic valve was not well visualized. Tricuspid Valve Likely normal tricuspid valve structure and function. There is trace tricuspid valve regurgitation. The right ventricular systolic pressure is normal. The right ventricular systolic pressure is 18 mmHg. Normal right atrial pressure. There is no evidence of pulmonary hypertension. Great Vessels All visible segments of the aorta are normal in size. The pulmonary artery was not well visualized. There is no dilatation of the ascending aorta measuring 3.10 cm. Venous The inferior vena cava is normal in size and collapses greater than 50% with inspiration. Pericardium/Pleural There is no evidence of pericardial effusion. Prior Study Comparison No prior study available for comparison. Discharge Plan Discharge Anticipated Discharge Date/Time: 03/30/25 13:16 Patient Disposition: Home Health Service Discharge Diagnosis: cognitive impairment Referrals: [facility] [Outside] - 1 Week Alona Yanez MD [Primary Care Provider, Internal Medicine] - 1 Week Discharge Medications: New atorvastatin 10 mg Tablet 10 mg PO BEDTIME Qty: 90 0RF aspirin 81 mg Tablet,Chewable 81 mg PO DAILY Qty: 90 0RF Continued cetirizine 10 mg tablet 10 mg PO DAILY PRN (Reason: Allergy Symptoms) levothyroxine 75 mcg tablet 75 mcg PO DAILY@0600 albuterol sulfate 90 mcg/actuation HFA aerosol inhaler 2 puff INHALATION Q4H PRN (Reason: wheezing) fluticasone propionate 50 mcg/actuation spray,suspension 2 spray intranasal DAILY atenolol 50 mg tablet 50 mg PO DAILY latanoprost 0.005 % drops 1 drp ophthalmic (eye) BEDTIME cholecalciferol (vitamin D3) [Vitamin D3] 50 mcg (2,000 unit) Tablet 50 mcg PO DAILY Caltrate 600 plus D 600 mg-20 mcg (800 unit) Tablet,Chewable 1 tab PO BID Discharge Orders: Discharge Order (Routine); Ordered 03/31/25 Ordered By: Zoila Lewis Diet: Advance to usual diet Activity on Discharge: As tolerated Stand Alone Forms: Patient Portal Discharge page Print Language: Czech Care Plan Goals: Patient was admitted initially for encephalopathy unclear etiology workup including CT head and MRI negative, echo seems also fine. EEG negative. Patient seen by Neurology -added aspirin and recommended better blood pressure control. In addition patient was seen by OT and Psychiatry patient has cognitive impairment-currently patient is going to go home with VNA and elderly protective Services.she is advised not to drive following [facility] regulations. Patient had mild elevated troponin, echo seems fine, orthostatic negative, seen by Cardiology: No further cardiac workup since patient is asymptomatic. Health Concerns: As above. Plan of Treatment: As above. Assessment: As above.
[2025-03-30 15:22] VITALS: BP 109/57; PULSE 63; RESP 18; TEMP 37.3; O2SAT 94
--- NOTE | 2025-03-30 16:39 | P.PNIM_ITS ---
Subjective Subjective Date of Service: 03/30/25 Interval History: cognitive impairment Review of Systems no new c/o. Physical Exam 2 Exam: Exam: Appearance: Alert.? Oriented X2.forgetful cvs: rrr, [id number] . res: clear to auscultation ,no rhonchii or wheezing abd: no rebound or guarding ,nt, bs present. ext pulses present , no cyanosis . neuro:move all ext. Vital Signs: Vital Signs: Last Vital Signs Temp 99.1 F 03/30/25 15:22 Pulse 63 03/30/25 15:22 Resp 18 03/30/25 15:22 BP 109/57 L 03/30/25 15:22 Pulse Ox 94 03/30/25 15:22 O2 Del Method Room Air 03/30/25 15:22 BMI result Body Mass Index 31.4 Objective Data Active Medications Acetaminophen (Acetaminophen 325 Mg Tablet) 650 mg PO Q6H PRN PRN Reason: Pain, Mild 1-3,fever,headache Albuterol Sulfate (Albuterol Sulfate 90 Mcg 8 Gm Inhaler) 2 puff INHALE Q4H PRN PRN Reason: Wheezing Albuterol/Ipratropium (Albuterol/Iprat 2.5/0.5mg 3 Ml Ampul.Neb) 3 ml INHALE Q4H PRN PRN Reason: Shortness of Breath/Wheezing Last Admin: 03/27/25 00:48 Dose: 3 ml Documented By: ANGELIQUE Aspirin (Aspirin 81 Mg Tab.Chew) 81 mg PO DAILY [facility] Last Admin: 03/30/25 08:43 Dose: 81 mg Documented By: CHRIS Atenolol (Atenolol 50 Mg Tablet) 50 mg PO DAILY [facility]; Protocol Last Admin: 03/30/25 08:40 Dose: 50 mg Documented By: CHRIS Atorvastatin Calcium (Atorvastatin Calcium 10 Mg Tablet) 10 mg PO BEDTIME [facility] Last Admin: 03/29/25 21:10 Dose: 10 mg Documented By: SPENSER Calcium Carbonate (Calcium Carbonate 750 Mg Tab.Chew) 750 mg PO Q4H PRN PRN Reason: Heartburn Calcium Carbonate/Cholecalciferol (Calcium + Vitamin D 250 Mg Tablet) 250 mg PO BID [facility] Last Admin: 03/30/25 08:40 Dose: 250 mg Documented By: CHRIS Fluticasone Propionate (Fluticasone Propionate Nasal 16 Gm [place]) 2 spray NOSTRIL-B DAILY [facility] Last Admin: 03/30/25 08:46 Dose: 2 spray Documented By: CHRIS Latanoprost (Latanoprost 0.005 % Ophth [place] 2.5 Ml Drops) 1 drop EYE-BOTH BEDTIME [facility] Last Admin: 03/29/25 21:10 Dose: 1 drop Documented By: SPENSER Levothyroxine Sodium (Levothyroxine Sodium 75 Mcg Tablet) 75 mcg PO DAILY@0600 [facility] Last Admin: 03/30/25 07:07 Dose: 75 mcg Documented By: SPENSER Loratadine (Loratadine 10 Mg Tablet) 10 mg PO DAILY PRN PRN Reason: Allergy Symptoms Magnesium Hydroxide (Milk Of Magnesia 30 Ml Oral.Susp) 30 ml PO DAILY PRN PRN Reason: Constipation Polyethylene Glycol (Polyethylene Glycol 3350 17 Gm Powd.Pack) 17 gm PO DAILY PRN PRN Reason: Constipation Senna (Sennosides 8.6 Mg Tablet) 17.2 mg PO BEDTIME [facility] Last Admin: 03/29/25 21:10 Dose: 17.2 mg Documented By: SPENSER Sodium Chloride (0.9 % Sodium Chloride Flush 3 Ml Syringe) 3 ml IVFLUSH QSHIFT [facility] Last Admin: 03/30/25 16:03 Dose: 3 ml Documented By: RAN Vitamin D (Cholecalciferol (Vitamin D3) 25 Mcg Tablet) 50 mcg PO DAILY [facility] Last Admin: 03/30/25 08:40 Dose: 50 mcg Documented By: CHRIS Labs 03/26/25 03:45 03/26/25 03:45 Assessment and Plan (1) Encephalopathy: Status: Acute (2) HTN (hypertension): Status: Acute Plan 84-year-old female currently experiencing poor memory both short-term and long-term but 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 Patient being admitted for TIA rule out CVA. Patient has no family in the local area. Attempted to reach patient's sister Lotus wilson and in [place] via information found online but both numbers were not working. Patient does not have a cell phone and has no numbers for her neighbor as well named clear. patient states she does have a history of Scott's palsy but when she saw her face this evening on admission she states that the left-sided droopiness and paralysis is new. as. possible encephalopathy-unclear etiology CT of the head and CTA of the head and neck negative for acute findings MRI of the brain negative for acute/subacute infarct Echocardiogram ordered plan: seen by OT-mild cognitive impairment continue aspirin 81 mg daily Lipid panel :triglycerides 86, cholesterol 163, LDL 98 and HDL 48 AIC 5.3 neuro rec: eeg negative and blood pressure control,antiplatelets. she is advised not to drive following [facility] regulations. Elevated troponin 56, than 56.9 Telemetry Echo:1. Normal LV ejection fraction of 65-70% with impaired relaxation filling pattern 2. Mild calcific aortic valve changes noted with normal cardiac valvular Dopplers 3. Normal RV systolic pressure 4. No gross pericardial effusion Cardiology consulted- trop flat,EKG negative for any ischemic changes, echo as abdulkadir ,orthostatic signs negative Hypertension:started back atenolol ,if blood pressure still not controlled we need to add blood pressure medication. History of Scott's palsy giovannyley left-sided facial changes are chronic Asthma Duo nebs p.r.n. Patient currently asymptomatic No history of smoking Hypothyroidism Continue levothyroxine TSH 3.29 Macular degeneration/glaucoma Continue eyedrops once med rec completed. cognitive impairment : seen by psych: seen by psych -possible home with VNA/[facility] DVT prophylaxis: Lovenox dispo: psych eval for capacity and safe discharge planning because she was found wondering and has congitive impairment . Quality Stroke Does the patient have a stroke diagnosis?: No Reason for No Anti-thrombotic by Day Two: N/A - Med Ordered VTE Prior VTE?: No VTE Risk Level:: Medical - moderate - high VTE Device Contraindication: N/A - Device Ordered VTE Drug Contraindication: N/A - Med Ordered
[2025-03-30 19:54] VITALS: BP 134/68; PULSE 69; RESP 18; TEMP 36.4; O2SAT 92
[2025-03-30] MEDS: Latanoprost 0.005 % Ophth Sol 2.5 ML DROPS 1 DROP EYE-BOTH (21:09)
[2025-03-31 03:46] VITALS: BP 117/64; PULSE 65; RESP 18; TEMP 36.8; O2SAT 92
[2025-03-31 07:48] VITALS: BP 115/72; PULSE 64; RESP 18; TEMP 36.8; O2SAT 90
[2025-03-31] MEDS: Calcium + Vitamin D 250 MG TABLET PO (08:14)
[2025-03-31] MEDS: 0.9 % Sodium Chloride Flush 3 ML SYRINGE IVFLUSH (08:15)
--- NOTE | 2025-03-31 10:33 | MHC.CM.PN ---
[facility] notified of dc as well as hvns per previous cm to [facility] report filed
[2025-03-31 11:07] VITALS: BP 132/63; PULSE 60; RESP 16; TEMP 36.6; O2SAT 92
--- NOTE | 2025-03-31 11:17 | PC.NURSE ---
Discharge instructions and teaching reviewed with patient. Patient became very tearful at the thought of not being able to drive anymore. Patient aware of follow up services, patient given address of where EMS picked her up on arrival and [place] police department to help assist in finding her car. Patient had no questions at time of discharge.
--- NOTE | 2025-03-31 14:11 | MHC.CM.PN ---
[facility] notified of pt [phone] [id number]
== END 2025-03-31 11:20 | disposition home health service (06) | DRG 72 ==
LOC: HO.ED 18:37 → HO.EDOVER 20:30 → HO.IMC 03-26 20:11 → HO.S3 03-30 21:26
PROVIDERS: Admitting Provider Nurse Practitioner Family; Emergency Provider Emergency Medicine; PCP Internal Medicine; Visit Provider Internal Medicine
DX: G93.40 Encephalopathy, unspecified (principal); G51.0 Bell's palsy; I10 Essential (primary) hypertension; E03.9 Hypothyroidism, unspecified; F03.90 Unspecified dementia, unspecified severity, without behavioral disturbance, psychotic disturbance, mood disturbance, and anxiety; J45.909 Unspecified asthma, uncomplicated; H35.30 Unspecified macular degeneration; H40.9 Unspecified glaucoma; Z79.51 Long term (current) use of inhaled steroids; Z79.82 Long term (current) use of aspirin; Z79.890 Hormone replacement therapy; Z79.899 Other long term (current) drug therapy
CPT/HCPCS: 36415; 70450; 70496; 70498; 70551; 80048; 80053; 80061; 80307; 82947; 83036; 83735; 83880; 84443; 84484; 85025; 85027; 85610; 85730; 93005; 93306; 94640; 95816; 97161; 97165; 97166; 99285; J0360; Q9957; Q9967

== ENCOUNTER → 2025-03-25 17:38 | Outpatient (BNV) | payer MEDICARE, SELFPAY | PROVIDERS: Emergency Provider Emergency Medicine; PCP Internal Medicine; Visit Provider Specialist | DX: R47.01 Aphasia (principal); I67.82 Cerebral ischemia; Z03.89 Encounter for observation for other suspected diseases and conditions ruled out | CPT/HCPCS: 70450; 70496; 70498; 70551 ==

== ENCOUNTER 2025-03-25 19:42 | Outpatient (BNV) | payer MEDICARE, SELFPAY | END 2025-03-27 07:00 | PROVIDERS: Admitting Provider Nurse Practitioner Family; Emergency Provider Emergency Medicine; PCP Internal Medicine; Visit Provider Internal Medicine Cardiovascular Disease | DX: I35.8 Other nonrheumatic aortic valve disorders (principal) | CPT/HCPCS: 93306 ==

== ENCOUNTER 2025-03-25 19:42 | Outpatient (BNV) | payer MEDICARE, SELFPAY | END 2025-03-27 11:00 | PROVIDERS: Admitting Provider Nurse Practitioner Family; Emergency Provider Emergency Medicine; PCP Internal Medicine; Visit Provider Psychiatry & Neurology Neurology | DX: R56.9 Unspecified convulsions (principal) | CPT/HCPCS: 95816 ==

== ENCOUNTER → 2025-03-25 19:42 | Outpatient (BNV) | payer MEDICARE, SELFPAY | PROVIDERS: Admitting Provider Nurse Practitioner Family; Emergency Provider Emergency Medicine; PCP Internal Medicine; Visit Provider Social Worker | DX: F03.90 Unspecified dementia, unspecified severity, without behavioral disturbance, psychotic disturbance, mood disturbance, and anxiety (principal) | CPT/HCPCS: 99232 ==

== ENCOUNTER → 2025-03-25 19:42 | Outpatient (BNV) | payer MEDICARE, SELFPAY | PROVIDERS: Admitting Provider Nurse Practitioner Family; Emergency Provider Emergency Medicine; PCP Internal Medicine; Visit Provider Internal Medicine Cardiovascular Disease | DX: R79.89 Other specified abnormal findings of blood chemistry (principal) | CPT/HCPCS: 93010; 99222 ==

== ENCOUNTER → 2025-03-25 19:42 | Outpatient (BNV) | payer MEDICARE, SELFPAY | PROVIDERS: Admitting Provider Nurse Practitioner Family; Emergency Provider Emergency Medicine; PCP Internal Medicine; Visit Provider Psychiatry & Neurology Neurology | DX: G93.40 Encephalopathy, unspecified (principal) | CPT/HCPCS: 99223 ==

== ENCOUNTER → 2025-03-25 19:42 | Outpatient (BNV) | payer MEDICARE, SELFPAY | PROVIDERS: Admitting Provider Nurse Practitioner Family; Emergency Provider Emergency Medicine; PCP Internal Medicine; Visit Provider Nurse Practitioner Family | DX: G93.40 Encephalopathy, unspecified (principal); I10 Essential (primary) hypertension; G45.9 Transient cerebral ischemic attack, unspecified | CPT/HCPCS: 99223; 99231 ==